=== PATIENT | male | born 1950 | race Caucasian/White ===

== ENCOUNTER 2017-06-01 11:25 | Outpatient (CLI) | payer MEDICARE ==
--- NOTE | 2017-06-01 12:29 | RAD ---
THREE VIEWS LUMBAR SPINE: Date: 06-01-17 History: Patient awakened three months ago low back pain. No history of trauma or surgery. Comparison: None. FINDINGS: There are five non rib bearing lumbar type vertebral bodies. Multilevel degenerative changes are pres ent with narrowing of the intervertebral disc spaces at all levels. There are endplate degenerative c hanges present at the L1-2 and L3-4 levels. No fracture or subluxation is seen. Vascular calcificatio ns are seen in the abdominal aorta and involving the iliac arteries. There is increased density invol ving the sacroiliac joints bilaterally which may be related to bilateral sacroiliac joint osteoarthri tis. Vascular calcification seen in the abdominal aorta. IMPRESSION: 1. Multilevel degenerative changes throughout the lumbar spine as well as involving the bilateral sac roiliac joints. 2. No fracture or subluxation involving the lumbar spine. POS: [facility]
== END 2017-06-01 11:26 | disposition home or self-care (01) ==
LOC: SCSRAD 11:25
PROVIDERS: ATTEND Psychiatry & Neurology Neurology
DX: M47.27 Other spondylosis with radiculopathy, lumbosacral region (principal); Z51.81 Encounter for therapeutic drug level monitoring; Z79.01 Long term (current) use of anticoagulants
CPT/HCPCS: 72100

== ENCOUNTER 2018-07-31 01:00 | Outpatient (CLI) | payer MEDICARE ==
[2018-07-31 12:53] LABS: Hemoglobin 13.6 g/dL (14.0-18.0); Mean Corpuscular HGB CONC 32.2 g/dL (32.0-36.0); Mean Corpuscular Hemoglobin 30.3 pg (27.0-31.0); Mean Corpuscular Volume 94.3 fL (78.0-98.0); Mean Platelet Volume 7.5 fL (7.4-10.4); Platelet Count 269 thou/uL (130-400); RBC Distribution Width 12.4 % (11.5-14.5); Red Blood Cell (RBC) Count 4.49 mill/uL (4.70-6.10); White Blood Cell (WBC) Count 8.2 thou/uL (4.8-10.8)
[2018-07-31 12:58] LABS: Bilirubin Negative (Negative); Blood, Urine Small (Negative); Clarity CLEAR (Clear); Glucose, Urine (Dipstick) Negative (Negative); Leukocyte Negative (Negative); Nitrite Negative (Negative); Protein, Urine (Dipstick) 300 mg/dL (Neg-Trace); Specific Gravity, Urine 1.017 (1.002-1.036); Urobilinogen 0.2 mg/dL (0.2-1.0); pH, Urine 5.5 (5.0-9.0)
[2018-07-31 13:01] LABS: Bacteria/HPF None Seen HPF (None Seen); Hyaline Casts/LPF 4-6 HYALINE CAST LPF (0-3 Hyaline); Pathc Cast-AUWi Flag 0.87 (0-2.49); Squamous Epithelial None Seen HPF (0-3); WBC/HPF 0-3 HPF (0-3)
[2018-07-31 13:16] LABS: Anion Gap 12 mmol/L (10-20); BUN (Urea Nitrogen) 33 mg/dL (8.4-25.7); Calc. Creatinine Clearance 0 mL/min (70-130); Calcium 9.6 mg/dL (7.8-10.44); Carbon Dioxide 29 mmol/L (23-31); Chloride 107 mmol/L (98-107); Estimated GFR-MDRD 44; Glucose 101 mg/dL (80-115); Potassium 4.6 mmol/L (3.5-5.1); Sodium 143 mmol/L (136-145)
== END 2018-07-31 01:01 | disposition home or self-care (01) ==
LOC: LABBT 01:00
PROVIDERS: ATTEND Orthopaedic Surgery
DX: Z01.818 Encounter for other preprocedural examination (principal); M19.011 Primary osteoarthritis, right shoulder
CPT/HCPCS: 80048; 81001; 85027; 93005; 93010

== ENCOUNTER 2018-07-31 10:30 | Inpatient (IN) | payer MEDICARE ==
[2018-08-02] MEDS ORDERED: Sodium Chloride 0.9% 100 ML ONE (06:12)
[2018-08-02] MEDS ORDERED: Tranexamic Acid 1,000 MG/10 ML VIAL ONE (06:12)
[2018-08-02] MEDS ORDERED: Fentanyl 100 MCG/2 ML VIAL ONE ×2 (06:36→06:59)
[2018-08-02] MEDS ORDERED: Midazolam HCl 2 mg/2 ml Vial ONE (06:36)
[2018-08-02] MEDS ORDERED: Zolpidem Tartrate 5 MG TAB PO PRN ×2 (07:32→11:24)
[2018-08-02] MEDS ORDERED: Ondansetron PF 4 MG/2 ML Vial IVP PRN ×2 (07:32→11:24)
[2018-08-02] MEDS ORDERED: traMADol HCl 50 MG TAB PO PRN ×3 (07:32→11:24)
[2018-08-02] MEDS ORDERED: Ropivacaine 0.2% 550 ML 550 ML NERVE BLCK SCH (07:32)
[2018-08-02] MEDS ORDERED: Promethazine HCl 25 MG/ML VIAL IM PRN (07:32)
[2018-08-02] MEDS ORDERED: HYDROcodone/Acetaminophen 10/325 mg Tablet PO PRN ×3 (07:32→11:24)
[2018-08-02] MEDS ORDERED: Albuterol Sulfate 1.25 MG/3 ML NEB ONE (09:54)
--- NOTE | 2018-08-02 11:16 | OP ---
DATE OF PROCEDURE: 08/02/2018 PREOPERATIVE DIAGNOSES: 1. Right shoulder osteoarthritis. 2. Biceps tendinopathy. PROCEDURES PERFORMED: 1. Right total shoulder. 2. Open biceps tenodesis. COMPOSITION WEATHERBOARD INSTALLER: Pauline Arguello. ANESTHESIOLOGIST: Dr. Cornejo. ANESTHESIA: The patient received a general intubation with interscalene block. ESTIMATED BLOOD LOSS: 200 mL. TOURNIQUET TIME: None. IMPLANTS: A Tornier Glenoid L40 CortiLoc, a 6B flex stem with a 50 x 16 mm high offset. ANTIBIOTICS: The patient received Ancef 2 g, vancomycin 2 g, and TXA 1 g. COMPLICATIONS: None. HISTORY OF PRESENT ILLNESS: Mr. Staley is a pleasant 68-year-old male with history of chronic kidney disease, diabetes, obesity, varicosities, kidney status, and high blood pressures, who presents for right shoulder pain. The patient has history of previous left total shoulder arthroplasty for shoulder osteoarthritis, which did well. We discussed with the patient risks and benefits of right total shoulder arthroplasty to include pain, scar, bleeding, infection, damage to vital structures, decreased range of motion and strength, nonunion, malunion, need for further surgery, continued pain, failure of implants, need for revision, loss of life or limb. The patient understood these risks and benefits and elected to proceed. DESCRIPTION OF PROCEDURE: Time-out was performed, designating the patient's right upper extremity as the operative site, based on site, consents, marked. After time-out, the patient's right upper extremity was prepped and draped in a sterile fashion. Deltopectoral incision was made, came down, found the vein,cephalic between the deltoid and pec, came down, found the conjoined, took off the synovium, came down, and exposing the conjoined and the deltoid. I made an incision, found the biceps, came down in the bicipital groove, took down the subscapularis and capsule inferiorly, everting and taking all the osteophytes off to expose the head, but has a Crego retractor over the cuff protecting our cut the head cut medially , cut based off the articular surface, removed the head, sized it, and after removing all the osteophytes, we removed and started stemming, broaching 30 degrees in line with the arm, cutting our keel, and then broaching up to a size 4, placed our head cap and then removing the glenoid with a 360-degree release of the patient's labrum as well as biceps as the biceps still has some loose bodies within the pouch. After completion of releasing it, we then sized to a 40 large. We drilled our center hole and then we reamed. We drilled our large center hole and placed our CortiLoc drill holes. We had a good stable fixation with our glenoid, not exceeding, slightly medialized about a millimeter and half, I liked the overall position as just slightly inferior. Overall position was good and good contour with the glenoid. We then removed, washed. We cemented our 3 pegs, placed our implant into position and packed into position and moved back to our humerus. We went up to a size 6B flex stem from a 5. We trialed 1st the 50 x 18, which had a larger thickness metal head, went to the high offset with a 16 mm head, felt like the patient had 50% translation, internally rotated, coming up this arm over head, get a good overall mechanics. We then removed the stem, placed 4 sutures of #5 Ethibond through the bone just on the lateral aspect of the lesser tuberosity and one in and out, the stem was passed through on the lateral aspect just near the distal insertion of the cuff. We then sewed the subscapularis through whipstitches through the bone tunnels, sewing from inferior to superior with the arm in a neutral, slightly external position. We cut as we sewed from inferior to superior. We then tenodesed the biceps with #1 Ethibond, closing it in the beginning of the interval with 2 [id number] stitches and we closed the interval with [id number] stitches between the cuff and subscap. We then passed 2 more #1 Vicryl through the biceps tendon. This performed our completion of biceps tenodesis, and I used as an [id number] stitch the original suture that I used to hold the subscap to pass around to my sutures posteriorly to help with completion of my repair. We then cut the sutures and washed and we washed through our layers. We then closed the deltopectoral interval with a running #1 Vicryl of the vein, which was maintained. We then closed the subcu with 2-0 and closed the skin with jose martin. The patient will be admitted to the hospital. We will see how he does. Pain control and 24-hour antibiotics with 2nd dose in the morning and he will begin pendulum passive range of motion exercise and no external rotation greater than 30 degrees. Job ID: [id number] MTDD
[2018-08-02] MEDS ORDERED: Famotidine 20 MG TAB PO SCH ×2 (11:24→12:30)
[2018-08-02] MEDS ORDERED: diphenhydrAMINE 50 MG CAP PO PRN (11:24)
[2018-08-02] MEDS ORDERED: Ondansetron ODT 4 MG TAB PO PRN (11:24)
[2018-08-02] MEDS ORDERED: CEFAZOLIN/Water 2 GM/20 ML SYRINGE SLOW IVP SCH (11:24)
[2018-08-02] MEDS ORDERED: Bisacodyl 10 MG SUPP PR PRN (11:24)
[2018-08-02] MEDS ORDERED: Milk Of Magnesia 30 ML UDCUP PO PRN (11:24)
[2018-08-02] MEDS ORDERED: Acetaminophen 325 MG TAB PO PRN (11:24)
[2018-08-02] MEDS ORDERED: Methocarbamol 1 GM/10 ML VIAL SLOW IVP PRN (11:24)
--- NOTE | 2018-08-02 11:32 | RAD ---
TWO VIEWS RIGHT SHOULDER: Date: 08-02-18 History: Post total shoulder replacement. FINDINGS: There are post-surgical changes related to right humeral prosthesis with skin clips overlying the rig ht shoulder. Externally rotated and scapular Y views are provided. No fracture or dislocation is appr eciated. Skin clips overlie the right shoulder. Subcutaneous emphysema is present related to recent p ost-surgical change. There is volume loss present in the right midlung zone at the right lung base. T his was also obtained in a shallow depth of inspiration. IMPRESSION: 1. Post-surgical changes related to right shoulder prosthesis. 2. Atelectasis right midlung zone and right lung base. POS: [facility]
[2018-08-02 12:29] VITALS: BMI 38.6
[2018-08-02] MEDS ORDERED: Bupivacaine HCl 0.5%/Epinephrine 1:200,000/PF 30 ml Vial ONE (13:11)
[2018-08-02] MEDS ORDERED: Ropivacaine 0.2% HCl/PF (40 MG/20 ML VIAL) ONE (13:11)
[2018-08-02] MEDS ORDERED: Lidocaine 1% PF 5 ML VIAL ONE (13:19)
[2018-08-02] MEDS ORDERED: PROPOFOL 200 MG/20 ML VIAL ONE (13:19)
[2018-08-02] MEDS ORDERED: Glycopyrrolate 0.2 MG/ML 5 ML SYRINGE ONE (13:19)
[2018-08-02] MEDS ORDERED: Rocuronium Bromide 10 MG/ML (10ML VIAL) ONE (13:19)
[2018-08-02] MEDS ORDERED: ePHEDrine 50 MG/ML VIAL ONE (13:19)
[2018-08-02] MEDS ORDERED: PHENYLEPHRINE-NS 100 MCG/ML 10 ML SYRINGE ONE (13:19)
[2018-08-02] MEDS ORDERED: Ondansetron PF 4 MG/2 ML Vial ONE (13:19)
[2018-08-02] MEDS ORDERED: Dexamethasone 20 MG/5 ML VIAL ONE (13:19)
[2018-08-02] MEDS ORDERED: CEFAZOLIN 2 GM in Premix Bag 1 BAG IVPB SCH (14:00)
[2018-08-02] MEDS: CEFAZOLIN 2 GM in Premix Bag 1 BAG IVPB SCH ×2 (15:09→23:37)
[2018-08-02] MEDS: Gabapentin 300 MG CAP PO SCH ×2 (15:13→20:13)
[2018-08-02] MEDS: traMADol HCl 50 MG TAB PO PRN (18:35)
[2018-08-02] MEDS: Famotidine 20 MG TAB PO SCH (20:13)
[2018-08-02] MEDS: Atorvastatin Calcium 40 MG TAB PO SCH (20:14)
[2018-08-03] MEDS: traMADol HCl 50 MG TAB PO PRN (03:22)
[2018-08-03] MEDS ORDERED: Dextrose 5% in Water 1,000 ML IV PRN (05:55)
[2018-08-03] MEDS ORDERED: Dextrose 50% Abboject 50 ML SYRINGE SLOW IVP PRN (05:55)
--- NOTE | 2018-08-03 05:56 | PDOC.PN ---
- Subjective Encounter Start Date: 08/02/18 Encounter Start Time: 15:00 Subjective: pt up in bed no complains of pain - Objective Vital Signs & Weight: Vital Signs (12 hours) Temp Pulse Resp BP Pulse Ox 08/03/18 04:25 97.9 F 64 18 128/70 93 L 08/02/18 23:40 97.6 F 69 20 132/71 97 08/02/18 20:22 98.7 F 72 18 131/75 95 Weight Weight 285 lb I&O: 08/01/18 08/02/18 08/03/18 06:59 06:59 06:59 Intake Total 1900 Balance 1900 Phys Exam - Physical Examination Neck: no nodes, no JVD, supple, full ROM Respiratory: no wheezing, no rales, no rhonchi, wheezing present, clear to auscultation bilateral Cardiovascular: RRR, no significant murmur, no rub, gallop, irregular Gastrointestinal: soft, non-tender, no distention, positive bowel sounds right shoulder in jeff wrap Neurological: non-focal, normal sensation, moves all 4 limbs Dx/Plan (1) HTN (hypertension) Code(s): I10 - ESSENTIAL (PRIMARY) HYPERTENSION Status: Acute (2) Diabetes type 2, controlled Code(s): E11.9 - TYPE 2 DIABETES MELLITUS WITHOUT COMPLICATIONS Status: Acute (3) CKD (chronic kidney disease) Code(s): N18.9 - CHRONIC KIDNEY DISEASE, UNSPECIFIED Status: Acute - Plan will conitnue his bp meds with holding parameters -: will check accu checks on him -: bmp in am -: pt is a former smoker, no alcohol use. no use of cpap * . Review of Systems - Review of Systems Cardiovascular: negative: chest pain, palpitations, orthopnea, paroxysmal nocturnal dyspnea, edema, light headedness, other Gastrointestinal: negative: Nausea, Vomiting, Abdominal Pain, Diarrhea, Constipation, Melena, Hematochezia, Other Musculoskeletal: negative: Neck Pain, Shoulder Pain, Arm Pain, Back Pain, Hand Pain, Leg Pain, Foot Pain, Other Skin: negative: Rash, Lesions, Wilman, Bruising, Other - Medications/Allergies Allergies/Adverse Reactions: Allergies Allergy/AdvReac Type Severity Reaction Status Date / Time No Known Allergies Allergy Verified 07/31/18 10:45 Medications: Current Medications Acetaminophen (Tylenol) 650 mg PO Q4H PRN PRN Reason: WALKER/T > 101.5F/Mild Pain (1-3) Hydrocodone Bitart/Acetaminophen ([place] 10/325) 1 tab PO Q4H PRN PRN Reason: Pain (1-3) Hydrocodone Bitart/Acetaminophen ([place] 10/325) 2 tab PO Q4H PRN PRN Reason: PAIN (4-6) Amlodipine Besylate (Norvasc) 10 mg PO DAILY [facility] Atenolol (Tenormin) 25 mg PO DAILY [facility] Atorvastatin Calcium (Lipitor) 40 mg PO HS [facility] Last Admin: 08/02/18 20:14 Dose: 40 mg Bisacodyl (Dulcolax) 10 mg [place] Q6H PRN PRN Reason: Constipation Dextrose/Water (Dextrose 50%) 25 gm SLOW IVP PRN PRN PRN Reason: Hypoglycemia Diphenhydramine HCl (Benadryl) 50 mg PO Q4H PRN PRN Reason: Itching Famotidine (Pepcid) 20 mg PO BID [facility] Last Admin: 08/02/18 20:13 Dose: 20 mg Fluoxetine HCl (Prozac) 20 mg PO DAILY [facility] Gabapentin (Neurontin) 300 mg PO TID [facility] Last Admin: 08/02/18 20:13 Dose: 300 mg Glucagon (Glucagon) 1 mg IM PRN PRN PRN Reason: Hypoglycemia Vancomycin HCl 2 gm/ Sodium (Chloride) 500 mls @ 250 mls/hr IVPB ONCALL-OR [facility] Ropivacaine (Ropivacaine 0.2% 550 Ml) 550 mls @ 6 mls/hr NERVE BLCK INF [facility] Dextrose/Water (D5w) 1,000 mls @ 0 mls/hr IV .Q0M PRN PRN Reason: Hypoglycemia Insulin Human Lispro (Humalog) 0 units SC .MILD SLIDING SCALE PRN PRN Reason: Mild Correctional Scale Magnesium Hydroxide (Milk Of Magnesium) 30 ml PO DAILYPRN PRN PRN Reason: Constipation Methocarbamol (Robaxin) 0.75 gm SLOW IVP Q6H PRN PRN Reason: Muscle Spasm Ondansetron HCl (Zofran) 4 mg IVP Q6H PRN PRN Reason: Nausea/Vomiting Ondansetron HCl (Zofran Odt) 4 mg PO Q6H PRN PRN Reason: Nausea/Vomiting Pioglitazone HCl (Actos) 30 mg PO DAILY [facility] Promethazine HCl (Phenergan) 12.5 mg IM Q4H PRN PRN Reason: Nausea Sodium Chloride (Flush - Normal Saline) 10 ml IVF PRN PRN PRN Reason: Saline Flush Tramadol HCl (Ultram) 50 mg PO Q6H PRN PRN Reason: Mild Pain (1-3) Tramadol HCl (Ultram) 100 mg PO Q6H PRN PRN Reason: Moderate Pain 4-6 Last Admin: 08/03/18 03:22 Dose: 100 mg Zolpidem Tartrate (Ambien) 5 mg PO HSPRN PRN PRN Reason: Insomnia
[2018-08-03 07:08] LABS: Anion Gap 13 mmol/L (10-20); BUN (Urea Nitrogen) 47 mg/dL (8.4-25.7); Calc. Creatinine Clearance 70 mL/min (70-130); Carbon Dioxide 25 mmol/L (23-31); Chloride 104 mmol/L (98-107); Estimated GFR-MDRD 35; Glucose 197 mg/dL (80-115); Potassium 4.8 mmol/L (3.5-5.1); Sodium 137 mmol/L (136-145)
[2018-08-03] MEDS: Gabapentin 300 MG CAP PO SCH ×3 (09:25→21:25)
[2018-08-03] MEDS: Atenolol 25 MG TAB PO SCH (09:25)
[2018-08-03] MEDS: Pioglitazone HCl 15 MG TAB PO SCH (09:25)
[2018-08-03] MEDS: FLUoxetine HCl 20 MG CAP PO SCH (09:26)
[2018-08-03] MEDS: Amlodipine 10 MG TAB PO SCH (09:26)
[2018-08-03] MEDS: Famotidine 20 MG TAB PO SCH ×2 (09:26→21:25)
[2018-08-03 13:30] LABS: Vancomycin, Random 24.3 ug/mL (See Comment)
--- NOTE | 2018-08-03 15:36 | PQF ---
DATE: 08-03-18 ATTN: DR. ROBIN TIERNEY Please exercise your independent, professional judgment in responding to the clarification form. Clinical indicators are provided on the bottom of this form for your review Please check appropriate box(s): [ x ] Acute Renal Failure (ARF) / Acute Kidney Injury (SKINNY) [ ] Acute on Chronic Renal Failure please specify Stage of CKD (see below) [ ] CKD without ARF/SKINNY please specify Stage of CKD [ ] Other diagnosis [ ] Unable to determine In addition, please specify: Present on Admission (POA): [ ] Yes [ x ] No [ ] Unable to determine PLEASE SEE MY PROGRESS NOTE National Kidney Foundation Guidelines for CKD Staging Stage I Kidney damage with normal or increased GFR GFR > 90 Stage II Kidney damage with mildly decreased GFR GFR 60-89 Stage III Kidney damage with moderately decreased GFR GFR 30-59 Stage IV Kidney damage with severely decreased GFR GFR 16-29 Stage V Kidney failure GFR<15 ESRD End Stage Renal Disease On dialysis Acute Renal Failure/Acute Kidney Failure defined as: Increases in SCr by (>) 0.3 mg/dl within 48 hours OR- Increases in SCr by (>) 1.5 times baseline, known or presumed to have occurred within the prior 7 days OR- Urine volume < 0.5 ml/kg/hour for 6 hours (KDIGO supplement 2012 for RIFLE/KARL criteria) For continuity of documentation, please document condition throughout progress notes and discharge summary. Thank You. CLINICAL INDICATORS - SIGNS / SYMPTOMS / LABS GFR: 08-03-18: 35 CREATININE: 08-03-18: 1.91 BUN: 08-03-18: [address] TIERNEY 08-02-18: HTN, DM 2, CKD RISK FACTORS: CONSULT NOTE DR. TIERNEY 08-02-18: HTN, DM 2, CKD TREATMENTS: CONSULT NOTE DR. TIERNEY 08-02-18: WILL CONTINUE HIS BP MEDS WITH HOLDING PARAMETERS, BMP IN AM (This form is maintained as a part of the permanent medical record) 2014 [employer] All Rights Reserved ROX [email or web address] Office: [phone] [facility]PITALArnold[facility]
[2018-08-03] MEDS: HumaLOG 300 UNITS/3 ML VIAL SC PRN ×2 (17:26→22:44)
--- NOTE | 2018-08-03 20:20 | PDOC.PN ---
- Subjective Encounter Start Date: 08/03/18 Encounter Start Time: 10:00 Subjective: pt up in bed no complains - Objective Vital Signs & Weight: Vital Signs (12 hours) Temp Pulse Resp BP BP Pulse Ox 08/03/18 15:18 98.6 F 70 20 123/74 91 L 08/03/18 11:58 99.0 F 68 20 124/69 91 L 08/03/18 09:26 69 121/66 08/03/18 09:25 69 121/71 08/03/18 08:59 97.4 F L 69 20 121/71 94 L Weight Weight 285 lb I&O: 08/02/18 08/03/18 08/04/18 06:59 06:59 06:59 Intake Total 3160 1260 Output Total 500 Balance 3160 760 Result Diagrams: 08/03/18 06:41 Phys Exam - Physical Examination Respiratory: no wheezing, no rales, no rhonchi, wheezing present, clear to auscultation bilateral Cardiovascular: RRR, no significant murmur, no rub, gallop, irregular Gastrointestinal: soft, non-tender, no distention, positive bowel sounds Musculoskeletal: no edema, pulses present, edema present Dx/Plan (1) HTN (hypertension) Code(s): I10 - ESSENTIAL (PRIMARY) HYPERTENSION Status: Acute (2) Diabetes type 2, controlled Code(s): E11.9 - TYPE 2 DIABETES MELLITUS WITHOUT COMPLICATIONS Status: Acute (3) CKD (chronic kidney disease) Code(s): N18.9 - CHRONIC KIDNEY DISEASE, UNSPECIFIED Status: Acute (4) Acute kidney injury superimposed on CKD Code(s): N17.9 - ACUTE KIDNEY FAILURE, UNSPECIFIED; N18.9 - CHRONIC KIDNEY DISEASE, UNSPECIFIED Status: Acute - Plan will check vanco random level -: pt not on any nephrotoxins, will avoid nephrotoxins -: pt encouraged to drink more water -: will check bmp in am. continue to hold hctz for now. * . Review of Systems - Review of Systems Respiratory: negative: Cough, Dry, Shortness of Breath, Hemoptysis, SOB with Excertion, Pleuritic Pain, Sputum, Wheezing Cardiovascular: negative: chest pain, palpitations, orthopnea, paroxysmal nocturnal dyspnea, edema, light headedness, other Gastrointestinal: negative: Nausea, Vomiting, Abdominal Pain, Diarrhea, Constipation, Melena, Hematochezia, Other - Medications/Allergies Allergies/Adverse Reactions: Allergies Allergy/AdvReac Type Severity Reaction Status Date / Time No Known Allergies Allergy Verified 07/31/18 10:45 Medications: Current Medications Acetaminophen (Tylenol) 650 mg PO Q4H PRN PRN Reason: WALKER/T > 101.5F/Mild Pain (1-3) Hydrocodone Bitart/Acetaminophen ([place] 10/325) 1 tab PO Q4H PRN PRN Reason: Pain (1-3) Hydrocodone Bitart/Acetaminophen ([place] 10/325) 2 tab PO Q4H PRN PRN Reason: PAIN (4-6) Amlodipine Besylate (Norvasc) 10 mg PO DAILY [facility] Last Admin: 08/03/18 09:26 Dose: 10 mg Atenolol (Tenormin) 25 mg PO DAILY [facility] Last Admin: 08/03/18 09:25 Dose: 25 mg Atorvastatin Calcium (Lipitor) 40 mg PO HS [facility] Last Admin: 08/02/18 20:14 Dose: 40 mg Bisacodyl (Dulcolax) 10 mg [place] Q6H PRN PRN Reason: Constipation Dextrose/Water (Dextrose 50%) 25 gm SLOW IVP PRN PRN PRN Reason: Hypoglycemia Diphenhydramine HCl (Benadryl) 50 mg PO Q4H PRN PRN Reason: Itching Famotidine (Pepcid) 20 mg PO BID [facility] Last Admin: 08/03/18 09:26 Dose: 20 mg Fluoxetine HCl (Prozac) 20 mg PO DAILY [facility] Last Admin: 08/03/18 09:26 Dose: 20 mg Gabapentin (Neurontin) 300 mg PO TID [facility] Last Admin: 08/03/18 14:45 Dose: 300 mg Glucagon (Glucagon) 1 mg IM PRN PRN PRN Reason: Hypoglycemia Vancomycin HCl 2 gm/ Sodium (Chloride) 500 mls @ 250 mls/hr IVPB ONCALL-OR [facility] Ropivacaine (Ropivacaine 0.2% 550 Ml) 550 mls @ 6 mls/hr NERVE BLCK INF [facility] Dextrose/Water (D5w) 1,000 mls @ 0 mls/hr IV .Q0M PRN PRN Reason: Hypoglycemia Insulin Human Lispro (Humalog) 0 units [place] .MILD SLIDING SCALE PRN PRN Reason: Mild Correctional Scale Last Admin: 08/03/18 17:26 Dose: 3 unit Magnesium Hydroxide (Milk Of Magnesium) 30 ml PO DAILYPRN PRN PRN Reason: Constipation Methocarbamol (Robaxin) 0.75 gm SLOW IVP Q6H PRN PRN Reason: Muscle Spasm Ondansetron HCl (Zofran) 4 mg IVP Q6H PRN PRN Reason: Nausea/Vomiting Last Admin: 08/03/18 14:00 Dose: 4 mg Ondansetron HCl (Zofran Odt) 4 mg PO Q6H PRN PRN Reason: Nausea/Vomiting Pioglitazone HCl (Actos) 30 mg PO DAILY [facility] Last Admin: 08/03/18 09:25 Dose: 30 mg Promethazine HCl (Phenergan) 12.5 mg IM Q4H PRN PRN Reason: Nausea Sodium Chloride (Flush - Normal Saline) 10 ml IVF PRN PRN PRN Reason: Saline Flush Last Admin: 08/03/18 09:26 Dose: 10 ml Tramadol HCl (Ultram) 50 mg PO Q6H PRN PRN Reason: Mild Pain (1-3) Tramadol HCl (Ultram) 100 mg PO Q6H PRN PRN Reason: Moderate Pain 4-6 Last Admin: 08/03/18 03:22 Dose: 100 mg Zolpidem Tartrate (Ambien) 5 mg PO HSPRN PRN PRN Reason: Insomnia
[2018-08-03] MEDS: Atorvastatin Calcium 40 MG TAB PO SCH (21:25)
[2018-08-04 06:08] LABS: Anion Gap 12 mmol/L (10-20); BUN (Urea Nitrogen) 57 mg/dL (8.4-25.7); Calc. Creatinine Clearance 60 mL/min (70-130); Calcium 8.7 mg/dL (7.8-10.44); Carbon Dioxide 24 mmol/L (23-31); Chloride 103 mmol/L (98-107); Estimated GFR-MDRD 30; Glucose 155 mg/dL (80-115); Potassium 4.3 mmol/L (3.5-5.1); Sodium 135 mmol/L (136-145)
[2018-08-04] MEDS: Pioglitazone HCl 15 MG TAB PO SCH (08:49)
[2018-08-04] MEDS: Atenolol 25 MG TAB PO SCH (08:49)
[2018-08-04] MEDS: Amlodipine 10 MG TAB PO SCH (08:49)
[2018-08-04] MEDS: Famotidine 20 MG TAB PO SCH ×2 (08:49→20:38)
[2018-08-04] MEDS: Gabapentin 300 MG CAP PO SCH ×3 (08:49→20:38)
[2018-08-04] MEDS: FLUoxetine HCl 20 MG CAP PO SCH (08:49)
[2018-08-04] MEDS ORDERED: Sodium Chloride 0.9% 500 ML IV SCH (10:15)
[2018-08-04] MEDS ORDERED: Bacteriostatic Water 30 ML VIAL FS PRN (13:21)
[2018-08-04] MEDS ORDERED: Insulin Glargine 10 UNITS in Pre-Filled Syringe 1 EACH SC SCH (13:30)
[2018-08-04] MEDS ORDERED: methylPREDNISolone Sod Succ 40 MG VIAL IVP SCH (13:30)
--- NOTE | 2018-08-04 15:23 | RAD ---
PORTABLE AP CHEST: Date: 08/04/18 HISTORY: Shortness of breath. COMPARISON: 03/29/15. FINDINGS: There has been interval development of elevation of the right hemidiaphragm compared to the prior aleena dy with volume loss at the right lung base. Left lung is clear. Right cardiac border is partially obs cured. Bilateral total shoulder prostheses are present with skin clips overlying the right shoulder. Postsurgical changes right shoulder have developed in the interim. Vascular calcifications seen in th oracic aorta. IMPRESSION: 1. Interval development of elevation of the right hemidiaphragm with volume loss at the right lung b ase. 2. Recent postsurgical changes related to right shoulder prosthesis. POS: [facility]
[2018-08-04 16:15] LABS: Actual Bicarbonate (HCO3a) 25.1 mEq/L (22-28); Base Excess (BEa) -0.6 mEq/L (-2.0 to +3.0); CO2 Tension 45.7 mmHg (35.0-45.0); Calcium, Ionized 1.17 mmol/L (1.12-1.30); Carboxyhemoglobin (COHb) 1.3 gm% (0.0-3.0); Hemoglobin (Hb) 11.2 g/dL (14.0-18.0); Potassium - ABG Lab 4.23 mmol/L (3.70-5.30); pH, Arterial 7.36 (7.35-7.45)
[2018-08-04 16:29] LABS: Puncture Site LRA
[2018-08-04 16:31] LABS: ALV-art Gradient 68.255 (0-20)
--- NOTE | 2018-08-04 16:36 | ULT ---
RENAL SONOGRAM: 08/04/18 HISTORY: Acute renal insufficiency. COMPARISON: 07/03/17. FINDINGS: The right kidney measures 11.3 cm x 6.2 cm. There is a small 1.6 cm exophytic hypoechoic structure se en involving the superior pole right kidney which is difficult to characterize as a simple cyst based on this exam and due to small size. No additional mass or cystic lesion is seen involving either kid jeanette. The kidneys otherwise have a normal sonographic appearance bilaterally without evidence of hydro nephrosis or renal calculus. The right kidney measures 11.3 cm x 6.2 cm with the left kidney measuring 11.4 cm x 5.6 cm. IMPRESSION: 1. Exophytic hypoechoic cystic structure measuring 1.6 cm at the superior pole right kidney whic h is difficult to accurately characterize as a simple cyst. There is posterior acoustic enhancement, and the echogenicity of this lesion may be attributable to artifact. However, short interval followu p is recommended in 4 to 6 months. 2. No evidence of hydronephrosis. POS: [facility]
[2018-08-04] MEDS: HYDROcodone/Acetaminophen 10/325 mg Tablet PO PRN (16:52)
[2018-08-04 17:11] LABS: Vancomycin, Random 13.6 ug/mL (See Comment)
--- NOTE | 2018-08-04 17:16 | CON ---
DATE OF CONSULTATION: 08/04/2018 REASON FOR CONSULTATION: Acute kidney injury. HISTORY OF PRESENT ILLNESS: The patient is a 68-year-old male with past medical history significant for CKD stage 3 with baseline creatinine ranging from 1.5 to 1.7, type 2 diabetes, coronary artery disease, as well as osteoarthritis, who was admitted by Orthopedic Surgery Service after right total showed an open biceps tenodesis. Postoperatively, the patient was noted to have acute elevation in creatinine, which continues to trend up, hence Nephrology consult for further evaluation. There was no obvious hypotensive episode during surgery. However, the patient was started on vancomycin and the available trough, which was yesterday afternoon, August 03, 2018, was 24.3. There was no history of contrast use or any other nephrotoxic agent use. The patient denied dysuria, hematuria, or difficulty passing urine. Postoperatively, BP has been stable, ranging from 107 to 132. The patient is a known patient of Dr. Albrecht, who was just seen in the office about a week ago. Postoperatively, the patient also was noted to have hypoxia, hence was started on oxygen supplementation. Of note, creatinine was 1.58 on July 31. On August 03, that is a day post surgery, creatinine was 1.91 and earlier today on August 04, creatinine is 2.2. PAST MEDICAL HISTORY: 1. Type 2 diabetes. 2. CKD stage 3. 3. Hypertension. 4. Obesity. 5. Coronary artery disease. PHYSICAL EXAMINATION: VITAL SIGNS: BP is 107/64, temperature is 98.9, pulse is 64, respiratory rate is 12, SpO2 is 91% on room air. GENERAL: Morbidly obese male, in no obvious distress. Afebrile, anicteric, acyanotic. HEENT: Normocephalic, atraumatic. Pupils are equal and reacting to light. CARDIOVASCULAR: Regular rhythm and rate with normal heart sounds 1 and 2. RESPIRATORY: Bronchial breath sounds heard at the right base posteriorly. Air entry is fair in all the areas. Some transmitted sounds is heard with no obvious crackle or rhonchi. Work of breathing is not increased. GI: Abdomen is obese, soft, nontender, nondistended with normal bowel sounds. EXTREMITIES: Right anterior showed surgical wound noted. Mild to moderate bilateral leg edema with some varicosities noted. NEUROLOGIC: Conscious, alert, and oriented x3 with appropriate mental status. The patient moves all extremities. DIAGNOSTIC DATA: BMP showed sodium 135, potassium 4.3, chloride 103, CO2 of 24, BUN 57, glucose 155, calcium 8.7, creatinine is 2.2, which has gone up from 1.91 yesterday and 1.58 two days prior. Random vancomycin level obtained on 08/03/2018 was 24.3. Ultrasound of the kidneys has been ordered and performed and report is pending at this time. ASSESSMENT AND PLAN: 1. Acute kidney injury on chronic kidney disease, 3: This most likely due to postoperative changes related to anesthesia and intraoperative hemodynamic changes. Elevated random vancomycin level is concerning for vancomycin-induced nephrotoxicity. The patient is not exposed to any of the nephrotoxic agent. The patient is at increased risk for acute kidney injury given his chronic kidney disease history. We will get urinalysis as well as urine electrolytes to calculate FENa and FEUrea. We will also review renal ultrasound report when available. We will prefer to discontinue vancomycin at this time since it is the only nephrotoxic agent the patient is exposed to. We will monitor renal function. We will continue gentle hydration at this time until we re-evaluate with electrolytes and urinalysis. 2. Acute respiratory failure with hypoxia: Etiology is unclear. Air entry is decreased on the right base with bronchial breath sounds and chest x-ray showed some volume loss. Pulmonary embolism is a concern, but we cannot afford to get contrast at this time given acute kidney injury. We defer further evaluation to the primary team. 3. Status post right total shoulder treatment as per Orthopedic. Job ID: [id number]
[2018-08-04] MEDS: Atorvastatin Calcium 40 MG TAB PO SCH (20:38)
--- NOTE | 2018-08-04 21:12 | CT ---
CT CHEST WITHOUT CONTRAST 08/04/18 HISTORY: Shortness of breath, recent shoulder surgery. FINDINGS: Absence of oral and IV contrast reduces the sensitivity of exam particularly for evaluation of the me diastinal, hilar and vascular structures. No pleural or pericardial effusions are seen. there is elevation of the right hemidiaphragm. There is patchy consolidation with atelectatic change at the left lung base. Mild infiltrate versus atelectat ic changes also seen in the lingula. No pneumothoraces are seen. No lung masses or pulmonary nodules are identified. There are degenerative changes in the spine. Nonobstructing right renal calculi are p resent in the upper abdominal tomograms. IMPRESSION: Patchy consolidation versus atelectatic changes in the lower lungs. Possibility of infection cannot b e excluded. POS: [facility]
[2018-08-04] MEDS: HumaLOG 300 UNITS/3 ML VIAL SC PRN (21:16)
[2018-08-05 05:56] LABS: Bilirubin Negative (Negative); Blood, Urine Negative (Negative); Clarity CLEAR (Clear); Glucose, Urine (Dipstick) Negative (Negative); Leukocyte Negative (Negative); Nitrite Negative (Negative); Protein, Urine (Dipstick) 100 mg/dL (Neg-Trace); Specific Gravity, Urine 1.017 (1.002-1.036); Urobilinogen 0.2 mg/dL (0.2-1.0); pH, Urine 5.5 (5.0-9.0)
[2018-08-05 05:58] LABS: Bacteria/HPF None Seen HPF (None Seen); Hyaline Casts/LPF 4-6 HYALINE CAST LPF (0-3 Hyaline); Pathc Cast-AUWi Flag 0.72 (0-2.49); Squamous Epithelial None Seen HPF (0-3); WBC/HPF 0-3 HPF (0-3)
--- NOTE | 2018-08-05 06:06 | PDOC.PN ---
- Subjective Encounter Start Date: 08/04/18 Encounter Start Time: 10:15 - Objective Vital Signs & Weight: Vital Signs (12 hours) Temp Pulse Resp BP Pulse Ox 08/05/18 04:00 97.7 F 63 20 114/68 100 08/05/18 02:06 72 20 1 L 08/05/18 00:08 97.6 F 70 20 120/68 93 L 08/04/18 20:35 93 L 08/04/18 20:00 97.9 F 61 20 108/61 93 L 08/04/18 18:58 68 18 92 L Weight Weight 285 lb I&O: 08/03/18 08/04/18 08/05/18 06:59 06:59 06:59 Intake Total 3160 1760 2040 Output Total 500 Balance 3160 1260 2040 Result Diagrams: 08/04/18 05:13 Additional Labs: Accuchecks 08/04/18 08/04/18 08/04/18 21:11 17:26 14:48 POC Glucose 269 H 196 H 199 H Phys Exam - Physical Examination Neck: no nodes, no JVD, supple, full ROM decrease breath sound to bases Cardiovascular: RRR, no significant murmur, no rub, gallop, irregular Gastrointestinal: soft, non-tender, no distention, positive bowel sounds Dx/Plan (1) HTN (hypertension) Code(s): I10 - ESSENTIAL (PRIMARY) HYPERTENSION Status: Acute (2) Diabetes type 2, controlled Code(s): E11.9 - TYPE 2 DIABETES MELLITUS WITHOUT COMPLICATIONS Status: Acute (3) CKD (chronic kidney disease) Code(s): N18.9 - CHRONIC KIDNEY DISEASE, UNSPECIFIED Status: Acute (4) Acute kidney injury superimposed on CKD Code(s): N17.9 - ACUTE KIDNEY FAILURE, UNSPECIFIED; N18.9 - CHRONIC KIDNEY DISEASE, UNSPECIFIED Status: Acute (5) Hypoxia Code(s): R09.02 - HYPOXEMIA Status: Acute - Plan pt has been on oxygen post surgery and has been unable to be -: weaned off. upon talking to him and daughter pt has been sob for a long -: time. He states that at home in the past when he checks his oxygen it is -: 75-80% RA. pt is downplaying his syptoms and i believe he is not telling -: his providers his symptoms. He also is a smoker one pack and quit 5-6month * I have started him on neb/steroids. cxr hypoventilated lungs. PE is a possibility but i believe his symptoms have been going on for a long time. His sat going in OR was 92%. He is able to do his IS well. CTA is not an option given his renal function, v/q will be suboptimal due to his hypoinflated lungs. His abg was reviewed and stable. He also most likely has sleep apnea. spoken with renal and will continue to monitor. pt also was given 500ml of ns for his kidneys. I have updated his daughter and have asked her to go with him to his appointments. hypoxia possible multifactoral: copd exab/undx odalys/atelectasis. will check labs today and i have added insulin to anticipate elevation in bs due to steroids. Review of Systems - Review of Systems Cardiovascular: negative: chest pain, palpitations, orthopnea, paroxysmal nocturnal dyspnea, edema, light headedness, other Gastrointestinal: negative: Nausea, Vomiting, Abdominal Pain, Diarrhea, Constipation, Melena, Hematochezia, Other Genitourinary: negative: Dysuria, Frequency, Incontinence, Hematuria, Retention , Other - Medications/Allergies Allergies/Adverse Reactions: Allergies Allergy/AdvReac Type Severity Reaction Status Date / Time No Known Allergies Allergy Verified 07/31/18 10:45 Medications: Current Medications Acetaminophen (Tylenol) 650 mg PO Q4H PRN PRN Reason: WALKER/T > 101.5F/Mild Pain (1-3) Hydrocodone Bitart/Acetaminophen (Joaquin 10/325) 1 tab PO Q4H PRN PRN Reason: Pain (1-3) Hydrocodone Bitart/Acetaminophen (Joaquin 10/325) 2 tab PO Q4H PRN PRN Reason: PAIN (4-6) Last Admin: 08/04/18 16:52 Dose: 2 tab Albuterol/Ipratropium (Duoneb) 3 ml NEB [id number] [facility] Last Admin: 08/05/18 02:06 Dose: 3 ml Amlodipine Besylate (Norvasc) 10 mg PO DAILY [facility] Last Admin: 08/04/18 08:49 Dose: 10 mg Atenolol (Tenormin) 25 mg PO DAILY [facility] Last Admin: 08/04/18 08:49 Dose: 25 mg Atorvastatin Calcium (Lipitor) 40 mg PO HS [facility] Last Admin: 08/04/18 20:38 Dose: 40 mg Bisacodyl (Dulcolax) 10 mg [place] Q6H PRN PRN Reason: Constipation Dextrose/Water (Dextrose 50%) 25 gm SLOW IVP PRN PRN PRN Reason: Hypoglycemia Diphenhydramine HCl (Benadryl) 50 mg PO Q4H PRN PRN Reason: Itching Famotidine (Pepcid) 20 mg PO BID [facility] Last Admin: 08/04/18 20:38 Dose: 20 mg Fluoxetine HCl (Prozac) 20 mg PO DAILY [facility] Last Admin: 08/04/18 08:49 Dose: 20 mg Gabapentin (Neurontin) 300 mg PO TID [facility] Last Admin: 08/04/18 20:38 Dose: 300 mg Glucagon (Glucagon) 1 mg IM PRN PRN PRN Reason: Hypoglycemia Dextrose/Water (D5w) 1,000 mls @ 0 mls/hr IV .Q0M PRN PRN Reason: Hypoglycemia Insulin Glargine 10 units/ (Miscellaneous Medication) 0.1 mls @ 0 mls/hr SC QAM [facility] Insulin Human Lispro (Humalog) 0 units SC .MILD SLIDING SCALE PRN PRN Reason: Mild Correctional Scale Last Admin: 08/04/18 21:16 Dose: 4 unit Magnesium Hydroxide (Milk Of Magnesium) 30 ml PO DAILYPRN PRN PRN Reason: Constipation Last Admin: 08/04/18 06:40 Dose: 30 ml Methocarbamol (Robaxin) 0.75 gm SLOW IVP Q6H PRN PRN Reason: Muscle Spasm Methylprednisolone Sodium Succinate (Solu-Medrol) 40 mg IVP DAILY [facility] Ondansetron HCl (Zofran) 4 mg IVP Q6H PRN PRN Reason: Nausea/Vomiting Last Admin: 08/03/18 14:00 Dose: 4 mg Ondansetron HCl (Zofran Odt) 4 mg PO Q6H PRN PRN Reason: Nausea/Vomiting Promethazine HCl (Phenergan) 12.5 mg IM Q4H PRN PRN Reason: Nausea Sodium Chloride (Flush - Normal Saline) 10 ml IVF PRN PRN PRN Reason: Saline Flush Last Admin: 08/03/18 09:26 Dose: 10 ml Sterile Water (Bacteriostatic Water) 1 ml FS PRN PRN PRN Reason: RECONSTITUTION Tramadol HCl (Ultram) 50 mg PO Q6H PRN PRN Reason: Mild Pain (1-3) Tramadol HCl (Ultram) 100 mg PO Q6H PRN PRN Reason: Moderate Pain 4-6 Last Admin: 08/03/18 03:22 Dose: 100 mg Zolpidem Tartrate (Ambien) 5 mg PO HSPRN PRN PRN Reason: Insomnia
[2018-08-05] MEDS: HumaLOG 300 UNITS/3 ML VIAL SC PRN ×2 (06:16→22:05)
[2018-08-05 06:37] LABS: Urine Culture Reflex No No
[2018-08-05 06:51] LABS: Creatinine, Urine 98.88 mg/dL (63-166)
[2018-08-05 07:50] LABS: #Lymphocytes 1.2 thou/uL (1.20-3.40); #Monocytes 0.9 thou/uL (0.11-0.59); #Neutrophils 4.9 thou/uL (1.40-6.50); %Eosinophils 0.7 % (0.0-10.0); %Lymphocytes 17.3 % (21.0-51.0); %Monocytes 12.5 % (0.0-10.0); %Neutrophils 69.5 % (42.0-75.0); Hemoglobin 10.9 g/dL (14.0-18.0); Mean Corpuscular HGB CONC 31.8 g/dL (32.0-36.0); Mean Corpuscular Hemoglobin 30.5 pg (27.0-31.0); Mean Corpuscular Volume 95.8 fL (78.0-98.0); Mean Platelet Volume 7.7 fL (7.4-10.4); Platelet Count 224 thou/uL (130-400); RBC Distribution Width 12.7 % (11.5-14.5); Red Blood Cell (RBC) Count 3.59 mill/uL (4.70-6.10)
[2018-08-05 08:10] LABS: Anion Gap 12 mmol/L (10-20); BUN (Urea Nitrogen) 66 mg/dL (8.4-25.7); Calc. Creatinine Clearance 62 mL/min (70-130); Calcium 9.1 mg/dL (7.8-10.44); Carbon Dioxide 23 mmol/L (23-31); Chloride 105 mmol/L (98-107); Estimated GFR-MDRD 31; Glucose 133 mg/dL (80-115); Sodium 136 mmol/L (136-145)
[2018-08-05] MEDS: Amlodipine 10 MG TAB PO SCH (08:26)
[2018-08-05] MEDS: Famotidine 20 MG TAB PO SCH ×2 (08:29→20:23)
[2018-08-05] MEDS: Gabapentin 300 MG CAP PO SCH ×3 (08:30→20:24)
[2018-08-05] MEDS: Atenolol 25 MG TAB PO SCH (08:31)
[2018-08-05] MEDS: FLUoxetine HCl 20 MG CAP PO SCH (08:31)
[2018-08-05] MEDS: methylPREDNISolone Sod Succ 40 MG VIAL IVP SCH ×2 (08:32→13:08)
[2018-08-05] MEDS: Insulin Glargine 10 UNITS in Pre-Filled Syringe 1 EACH SC SCH (08:32)
[2018-08-05] MEDS: HYDROcodone/Acetaminophen 10/325 mg Tablet PO PRN (08:36)
[2018-08-05] MEDS ORDERED: predniSONE 20 MG TAB PO SCH (13:45)
--- NOTE | 2018-08-05 18:21 | PDOC.PN ---
- Subjective Encounter Start Date: 08/05/18 Encounter Start Time: 09:00 Subjective: pt up in bed no complains - Objective Vital Signs & Weight: Vital Signs (12 hours) Temp Pulse Resp BP BP Pulse Ox 08/05/18 15:46 97.9 F 58 L 16 106/63 93 L 08/05/18 15:25 97.6 F 80 20 116/61 93 L 08/05/18 14:24 63 20 94 L 08/05/18 12:00 97.7 F 57 L 14 103/58 L 93 L 08/05/18 10:44 62 20 94 L 08/05/18 08:31 63 110/67 08/05/18 08:26 63 110/67 08/05/18 08:00 92 L 08/05/18 07:45 97.7 F 63 16 110/67 92 L 08/05/18 07:15 97.7 F 64 18 110/67 92 L 08/05/18 06:34 93 L 08/05/18 06:31 62 20 94 L Weight Weight 285 lb I&O: 08/04/18 08/05/18 08/06/18 06:59 06:59 06:59 Intake Total 1760 2040 1620 Output Total 500 Balance 1260 2040 1620 Result Diagrams: 08/05/18 07:34 08/05/18 07:34 Additional Labs: Accuchecks 08/05/18 08/04/18 06:13 21:11 POC Glucose 162 H 269 H Phys Exam - Physical Examination Neck: no nodes, no JVD, supple, full ROM Respiratory: wheezing present mild Cardiovascular: RRR, no significant murmur, no rub, gallop, irregular Gastrointestinal: soft, non-tender, no distention, positive bowel sounds Musculoskeletal: no edema, pulses present, edema present Dx/Plan (1) HTN (hypertension) Code(s): I10 - ESSENTIAL (PRIMARY) HYPERTENSION Status: Acute (2) Diabetes type 2, controlled Code(s): E11.9 - TYPE 2 DIABETES MELLITUS WITHOUT COMPLICATIONS Status: Acute (3) CKD (chronic kidney disease) Code(s): N18.9 - CHRONIC KIDNEY DISEASE, UNSPECIFIED Status: Acute (4) Acute kidney injury superimposed on CKD Code(s): N17.9 - ACUTE KIDNEY FAILURE, UNSPECIFIED; N18.9 - CHRONIC KIDNEY DISEASE, UNSPECIFIED Status: Acute (5) Hypoxia Code(s): R09.02 - HYPOXEMIA Status: Acute - Plan will continue steroids orally and duonebs for now -: creatinine is improving -: pt will need outpatient pulm consult and sleep study -: he will also need arterial doppler due to complains of -: lower ext pain on ambulation. continue to wean oxygen * . Review of Systems - Review of Systems Respiratory: negative: Cough, Dry, Shortness of Breath, Hemoptysis, SOB with Excertion, Pleuritic Pain, Sputum, Wheezing Cardiovascular: negative: chest pain, palpitations, orthopnea, paroxysmal nocturnal dyspnea, edema, light headedness, other Gastrointestinal: negative: Nausea, Vomiting, Abdominal Pain, Diarrhea, Constipation, Melena, Hematochezia, Other Genitourinary: negative: Dysuria, Frequency, Incontinence, Hematuria, Retention , Other Musculoskeletal: negative: Neck Pain, Shoulder Pain, Arm Pain, Back Pain, Hand Pain, Leg Pain, Foot Pain, Other - Medications/Allergies Allergies/Adverse Reactions: Allergies Allergy/AdvReac Type Severity Reaction Status Date / Time No Known Allergies Allergy Verified 07/31/18 10:45 Medications: Current Medications Acetaminophen (Tylenol) 650 mg PO Q4H PRN PRN Reason: WALKER/T > 101.5F/Mild Pain (1-3) Hydrocodone Bitart/Acetaminophen (Amalia 10/325) 1 tab PO Q4H PRN PRN Reason: Pain (1-3) Hydrocodone Bitart/Acetaminophen (Amalia 10/325) 2 tab PO Q4H PRN PRN Reason: PAIN (4-6) Last Admin: 08/05/18 08:36 Dose: 2 tab Albuterol/Ipratropium (Duoneb) 3 ml NEB [id number] Last Admin: 08/05/18 14:24 Dose: 3 ml Amlodipine Besylate (Norvasc) 10 mg PO DAILY [facility] Last Admin: 08/05/18 08:26 Dose: 10 mg Atenolol (Tenormin) 25 mg PO DAILY [facility] Last Admin: 08/05/18 08:31 Dose: 25 mg Atorvastatin Calcium (Lipitor) 40 mg PO HS [facility] Last Admin: 08/04/18 20:38 Dose: 40 mg Bisacodyl (Dulcolax) 10 mg [place] Q6H PRN PRN Reason: Constipation Dextrose/Water (Dextrose 50%) 25 gm SLOW IVP PRN PRN PRN Reason: Hypoglycemia Diphenhydramine HCl (Benadryl) 50 mg PO Q4H PRN PRN Reason: Itching Famotidine (Pepcid) 20 mg PO BID [facility] Last Admin: 08/05/18 08:29 Dose: 20 mg Fluoxetine HCl (Prozac) 20 mg PO DAILY [facility] Last Admin: 08/05/18 08:31 Dose: 20 mg Gabapentin (Neurontin) 300 mg PO TID [facility] Last Admin: 08/05/18 14:47 Dose: 300 mg Glucagon (Glucagon) 1 mg IM PRN PRN PRN Reason: Hypoglycemia Dextrose/Water (D5w) 1,000 mls @ 0 mls/hr IV .Q0M PRN PRN Reason: Hypoglycemia Insulin Glargine 10 units/ (Miscellaneous Medication) 0.1 mls @ 0 mls/hr SC [facility] Last Admin: 08/05/18 08:32 Dose: 0.1 mls Insulin Human Lispro (Humalog) 0 units [place] .MILD SLIDING SCALE PRN PRN Reason: Mild Correctional Scale Last Admin: 08/05/18 06:16 Dose: 2 unit Magnesium Hydroxide (Milk Of Magnesium) 30 ml PO DAILYPRN PRN PRN Reason: Constipation Last Admin: 08/04/18 06:40 Dose: 30 ml Methocarbamol (Robaxin) 0.75 gm SLOW IVP Q6H PRN PRN Reason: Muscle Spasm Ondansetron HCl (Zofran) 4 mg IVP Q6H PRN PRN Reason: Nausea/Vomiting Last Admin: 08/03/18 14:00 Dose: 4 mg Ondansetron HCl (Zofran Odt) 4 mg PO Q6H PRN PRN Reason: Nausea/Vomiting [facility]Pred[facility]) [facility] Promethazine HCl (Phenergan) 12.5 mg IM Q4H PRN PRN Reason: Nausea Sodium Chloride (Flush - Normal Saline) 10 ml IVF PRN PRN PRN Reason: Saline Flush Last Admin: 08/03/18 09:26 Dose: 10 ml Tramadol HCl (Ultram) 50 mg PO Q6H PRN PRN Reason: Mild Pain (1-3) Tramadol HCl (Ultram) 100 mg PO Q6H PRN PRN Reason: Moderate Pain 4-6 Last Admin: 08/03/18 03:22 Dose: 100 mg Zolpidem Tartrate (Ambien) 5 mg PO HSPRN PRN PRN Reason: Insomnia
[2018-08-05] MEDS: Atorvastatin Calcium 40 MG TAB PO SCH (20:23)
[2018-08-06 04:59] LABS: Anion Gap 13 mmol/L (10-20); BUN (Urea Nitrogen) 64 mg/dL (8.4-25.7); Calc. Creatinine Clearance 71 mL/min (70-130); Calcium 9.2 mg/dL (7.8-10.44); Carbon Dioxide 24 mmol/L (23-31); Chloride 106 mmol/L (98-107); Estimated GFR-MDRD 37; Glucose 203 mg/dL (80-115); Potassium 4.8 mmol/L (3.5-5.1); Sodium 138 mmol/L (136-145)
[2018-08-06] MEDS ORDERED: predniSONE 20 MG TAB PO SCH (08:00)
[2018-08-06] MEDS: Gabapentin 300 MG CAP PO SCH ×2 (08:23→14:06)
[2018-08-06] MEDS: Famotidine 20 MG TAB PO SCH (08:23)
[2018-08-06] MEDS: HumaLOG 300 UNITS/3 ML VIAL SC PRN (08:24)
[2018-08-06] MEDS: FLUoxetine HCl 20 MG CAP PO SCH (08:24)
[2018-08-06] MEDS: Amlodipine 10 MG TAB PO SCH (08:24)
[2018-08-06] MEDS: Atenolol 25 MG TAB PO SCH (08:24)
[2018-08-06] MEDS: Insulin Glargine 10 UNITS in Pre-Filled Syringe 1 EACH SC SCH (08:25)
--- NOTE | 2018-08-06 10:26 | PRG ---
DATE OF SERVICE: 08/06/2018 SUBJECTIVE: Mr. Staley is a 68-year-old white male, who recently underwent right total shoulder surgery due to biceps tendinopathy/right shoulder osteoarthritis. He did receive general anesthesia with this. Pursuing this patient due to his acute kidney injury on top of his chronic renal failure. The feeling is that this may be simply a hemodynamically-mediated renal dysfunction. This morning, he voices no new complaints except for some right shoulder joint postop pain. Shortness of breath is actually improved. He is getting a neb treatment at the present time. OBJECTIVE: VITAL SIGNS: Blood pressure 133/66, heart rate 69, respiratory rate 18, temperature 98.1, and pulse ox 92% on room air. GENERAL: The patient is awake, sitting comfortable, obese, not in distress. SKIN: Adequate turgor. HEENT: He has a pinkish conjunctivae. Anicteric sclerae. NECK: No neck mass. No carotid bruits. No JVD. CHEST: No deformities. LUNGS: Clear breath sounds. HEART: Normal sinus rhythm. No murmur. No gallops. No rubs. ABDOMEN: Globular, soft, and nontender. No masses. EXTREMITIES: No edema. No deformities. MEDICATIONS: Medications of August 06, 2018, reviewed. LABORATORY DATA: Laboratories of August 06, 2018; sodium 138, potassium 4.8, chloride 106, carbon dioxide 24, BUN 64, creatinine 1.86, glucose 203, and calcium 9.2. ASSESSMENT AND PLAN: 1. Acute kidney injury on top of his chronic renal failure - superimposed hemodynamically mediated renal dysfunction. Creatinine is now much improved compared to a peak value of 2.2. His creatinine today 1.89 is nearing baseline. We will continue current medications with him. I did review the medication. He is not on any nephrotoxic drugs. Increased p.o. intake with this patient. No indication for any dialytic intervention. Overall, agree with current management. 2. Status post right shoulder joint surgery - doing well. Orthopedics is following. 3. Mild shortness of breath - currently on neb treatment. Clinically asymptomatic. 4. Overall agree with current management. Job ID: [id number]
[2018-08-06 11:51] VITALS: BP 135/63; TEMP 98
== END 2018-08-06 15:10 | disposition home or self-care (01) | DRG 483 ==
LOC: SURG A 08-02 05:47
PROVIDERS: ADMIT Orthopaedic Surgery; ATTEND Orthopaedic Surgery
PROC: 0RRJ0JZ Replacement of Right Shoulder Joint with Synthetic Substitute, Open Approach (ICD-10-PCS; principal; 2018-08-02)
PROC: 3E0T3BZ Introduction of Anesthetic Agent into Peripheral Nerves and Plexi, Percutaneous Approach (ICD-10-PCS; 2018-08-02)
PROC: 0LS30ZZ Reposition Right Upper Arm Tendon, Open Approach (ICD-10-PCS; 2018-08-02)
DX: M19.011 Primary osteoarthritis, right shoulder (principal); J96.01 Acute respiratory failure with hypoxia; N17.9 Acute kidney failure, unspecified; E11.22 Type 2 diabetes mellitus with diabetic chronic kidney disease; I12.9 Hypertensive chronic kidney disease with stage 1 through stage 4 chronic kidney disease, or unspecified chronic kidney disease; N18.3 Chronic kidney disease, stage 3 (moderate); I25.10 Atherosclerotic heart disease of native coronary artery without angina pectoris; M06.9 Rheumatoid arthritis, unspecified; E66.01 Morbid (severe) obesity due to excess calories; Z68.36 Body mass index [BMI] 36.0-36.9, adult; Z96.612 Presence of left artificial shoulder joint; F17.211 Nicotine dependence, cigarettes, in remission; S46.211A Strain of muscle, fascia and tendon of other parts of biceps, right arm, initial encounter
CPT/HCPCS: 36415; 36416; 71046; 71250; 76770; 80048; 80202; 81001; 82570; 82805; 82947; 84156; 84300; 84540; 85025; 85027; 93005; 93010; A4306; C1713; J0670; J1100; J1825; J2001; J2250; J2405; J2704; J2795; J2920; J3010; J3370; J3490; J7050; J7620

== ENCOUNTER 2021-02-16 11:57 | Inpatient (IN) | payer MEDICARE, OTHER ==
[2021-02-16 13:02] LABS: #Basophils 0.1 thou/uL (0.0-0.2); #Lymphocytes 0.3 thou/uL (1.20-3.40); #Monocytes 0.8 thou/uL (0.11-0.59); #Neutrophils 11.8 thou/uL (1.40-6.50); %Basophils 0.7 % (0.0-1.0); %Lymphocytes 2.3 % (21.0-51.0); Hemoglobin 11.1 g/dL (14.0-18.0); Mean Corpuscular HGB CONC 33.6 g/dL (32.0-36.0); Mean Corpuscular Hemoglobin 32.1 pg (27.0-31.0); Mean Corpuscular Volume 95.6 fL (78.0-98.0); Mean Platelet Volume 7.2 fL (7.4-10.4); Platelet Count 262 thou/uL (130-400); RBC Distribution Width 12.6 % (11.5-14.5); Red Blood Cell (RBC) Count 3.45 mill/uL (4.70-6.10)
[2021-02-16] MEDS ORDERED: Acetaminophen 500 MG TAB ONE (13:20)
[2021-02-16 13:29] LABS: ALT (SGPT) 15 U/L (8-55); AST (SGOT) 17 U/L (5-34); Alkaline Phosphatase 69 U/L (40-110); Anion Gap 10 mmol/L (10-20); BUN (Urea Nitrogen) 47 mg/dL (8.4-25.7); Bilirubin, Total 0.7 mg/dL (0.2-1.2); Calc. Creatinine Clearance 0 mL/min (70-130); Calcium 8.7 mg/dL (7.8-10.44); Carbon Dioxide 27 mmol/L (23-31); Chloride 101 mmol/L (98-107); Globulin 3.7 g/dL (2.4-3.5); Glucose 178 mg/dL (80-115); Potassium 4.1 mmol/L (3.5-5.1); Protein, Total 6.7 g/dL (5.8-8.1); Sodium 134 mmol/L (136-145)
[2021-02-16 13:50] LABS: CKMB 0.5 ng/mL (0-6.6)
[2021-02-16 14:19] LABS: SARS-CoV-2 NAA Rapid Test DETECTED (NotDetected)
[2021-02-16] MEDS ORDERED: Heparin 10,000 UNITS/ 10 ML VIAL ONE (14:30)
[2021-02-16] MEDS ORDERED: cefTRIAXone\\ROCEPHIN 2 GM VIAL ONE (14:30)
[2021-02-16] MEDS ORDERED: Heparin 25,000 units/D5W 500 ML ONE (14:30)
[2021-02-16] MEDS ORDERED: Azithromycin 500 MG VIAL ONE (14:30)
[2021-02-16 14:49] LABS: Actual Bicarbonate (HCO3a) 21.3 mEq/L (22-28); Analyzer IN Cardio ER; Base Excess (BEa) -3.2 mEq/L (-2.0 to +3.0); CO2 Tension 36.5 mmHg (35.0-45.0); Calcium, Ionized (arterial) 1.15 mmol/L (1.12-1.30); Carboxyhemoglobin (COHb) 0.1 gm% (0.0-3.0); Hemoglobin (Hb) 13.5 g/dL (14.0-18.0); O2 Tension (PaO2), arterial 62.2 mmHg (> 80.0); Potassium - ABG Lab 4.12 mmol/L (3.70-5.30); pH, Arterial 7.38 (7.35-7.45)
[2021-02-16 14:55] LABS: Puncture Site RRA
[2021-02-16 14:56] LABS: ALV-art Gradient 377.015 mmHg (0-20)
[2021-02-16 14:58] LABS: INR-International Normal Ratio 1.2; Prothrombin Time 15.1 sec (12.0-14.7)
[2021-02-16] MEDS ORDERED: Calcium Carbonate 500 MG ChewTAB PO PRN (15:21)
[2021-02-16] MEDS ORDERED: HYDROcodone/Acetaminophen 5/325 mg Tablet PO PRN (15:21)
[2021-02-16] MEDS ORDERED: Zolpidem Tartrate 5 MG TAB PO PRN (15:21)
[2021-02-16] MEDS ORDERED: Ondansetron ODT 4 MG TAB PO PRN (15:21)
[2021-02-16] MEDS ORDERED: Bisacodyl 5 MG TAB PO PRN (15:21)
[2021-02-16] MEDS ORDERED: Senokot S 8.6-50 MG TAB PO PRN (15:21)
[2021-02-16] MEDS ORDERED: Acetaminophen 325 MG TAB PO PRN (15:21)
[2021-02-16] MEDS ORDERED: Loperamide HCl 2 MG CAP PO PRN (15:21)
[2021-02-16] MEDS ORDERED: Dextrose 50% Abboject 50 ML SYRINGE SLOW IVP PRN (15:23)
[2021-02-16] MEDS ORDERED: Dextrose 5% in Water 1,000 ML IV PRN (15:23)
[2021-02-16] MEDS ORDERED: Heparin 10,000 UNITS/ 10 ML VIAL SLOW IVP SCH (17:00)
[2021-02-16] MEDS ORDERED: Heparin 25,000 units/D5W 500 ML IVPB SCH (17:00)
[2021-02-16 17:12] LABS: Troponin I 0.036 ng/mL (< 0.028)
[2021-02-16 17:29] LABS: Hemoglobin 10.9 g/dL (14.0-18.0); Platelet Count 269 thou/uL (130-400)
[2021-02-16] MEDS ORDERED: Albuterol 200 PUFF (6.7GM INHALER) INH PRN (18:13)
[2021-02-16 18:19] LABS: PTT Greater than 250.0 sec (22.9-36.1)
[2021-02-16] MEDS ORDERED: Atropine Sulfate 1 mg/10 ml Syringe ONE (19:08)
[2021-02-16 20:32] LABS: Troponin I 0.026 ng/mL (< 0.028)
[2021-02-16] MEDS ORDERED: Albuterol 200 PUFF (6.7GM INHALER) ONE (20:32)
[2021-02-16] MEDS: Albuterol 200 PUFF (6.7GM INHALER) INH SCH (20:37)
[2021-02-16 22:43] LABS: PTT Greater than 250.0 sec (22.9-36.1)
[2021-02-17 00:10] LABS: PTT 205.6 sec (22.9-36.1)
[2021-02-17] MEDS ORDERED: DOPamine 400 MG/D5W 250 ML 250 ML ONE ×2 (02:36→12:48)
[2021-02-17] MEDS: Albuterol 200 PUFF (6.7GM INHALER) INH SCH ×4 (02:52→18:41)
[2021-02-17 04:03] LABS: #Lymphocytes 0.9 thou/uL (1.20-3.40); #Monocytes 0.9 thou/uL (0.11-0.59); #Neutrophils 12.8 thou/uL (1.40-6.50); %Lymphocytes 5.9 % (21.0-51.0); %Monocytes 5.9 % (0.0-10.0); %Neutrophils 88.2 % (42.0-75.0); Hemoglobin 10.7 g/dL (14.0-18.0); Mean Corpuscular HGB CONC 33.6 g/dL (32.0-36.0); Mean Corpuscular Hemoglobin 32.5 pg (27.0-31.0); Mean Corpuscular Volume 96.7 fL (78.0-98.0); Mean Platelet Volume 7.7 fL (7.4-10.4); Platelet Count 260 thou/uL (130-400); RBC Distribution Width 12.6 % (11.5-14.5); Red Blood Cell (RBC) Count 3.31 mill/uL (4.70-6.10); White Blood Cell (WBC) Count 14.5 thou/uL (4.8-10.8)
[2021-02-17 04:21] LABS: Lactic Acid 1.1 mmol/L (0.5-2.2)
[2021-02-17 04:36] LABS: ALT (SGPT) 15 U/L (8-55); AST (SGOT) 15 U/L (5-34); Albumin 3.1 g/dL (3.4-4.8); Alkaline Phosphatase 69 U/L (40-110); Anion Gap 17 mmol/L (10-20); BUN (Urea Nitrogen) 57 mg/dL (8.4-25.7); Bilirubin, Total 0.3 mg/dL (0.2-1.2); Calc. Creatinine Clearance 32 mL/min (70-130); Calcium 8.4 mg/dL (7.8-10.44); Carbon Dioxide 20 mmol/L (23-31); Chloride 101 mmol/L (98-107); Globulin 3.6 g/dL (2.4-3.5); Glucose 236 mg/dL (80-115); Magnesium 2.1 mg/dL (1.6-2.6); Phosphorus 5.6 mg/dL (2.3-4.7); Potassium 4.3 mmol/L (3.5-5.1); Protein, Total 6.7 g/dL (5.8-8.1); Sodium 134 mmol/L (136-145)
[2021-02-17] MEDS: DOPamine 400 MG/D5W 250 ML 250 ML IVPB SCH ×2 (06:00→19:22)
[2021-02-17] MEDS ORDERED: Furosemide 40 MG/4 ML VIAL SLOW IVP SCH (06:00)
[2021-02-17] MEDS ORDERED: Furosemide 40 MG/4 ML VIAL ONE (06:59)
[2021-02-17] MEDS ORDERED: Ondansetron PF 4 MG/2 ML Vial ONE (07:41)
[2021-02-17] MEDS: Ondansetron PF 4 MG/2 ML Vial IVP PRN (07:54)
[2021-02-17] MEDS ORDERED: Cholecalciferol 1,000 UNITS (25 MCG) TAB ONE (09:25)
[2021-02-17] MEDS ORDERED: Aspirin Chewable 81 MG TAB ONE (09:25)
[2021-02-17] MEDS ORDERED: Ascorbic Acid 500 mg Chewable Tablet ONE (09:26)
[2021-02-17] MEDS ORDERED: Dexamethasone 4 mg/ml Vial ONE ×2 (09:27→09:47)
[2021-02-17] MEDS: Aspirin Chewable 81 MG TAB PO SCH (09:45)
[2021-02-17] MEDS: Dexamethasone 4 mg/ml Vial SLOW IVP SCH (09:45)
[2021-02-17] MEDS: Ascorbic Acid 500 mg Chewable Tablet PO SCH (09:45)
[2021-02-17] MEDS: Cholecalciferol 1,000 UNITS (25 MCG) TAB PO SCH (09:45)
[2021-02-17] MEDS: Fluticasone Propionate Nasal Spray 16 gm Bottle NASAL SCH (09:45)
[2021-02-17] MEDS ORDERED: Zinc Sulfate 220 MG CAP ONE (09:48)
[2021-02-17] MEDS: Zinc Sulfate 220 MG CAP PO SCH (09:52)
[2021-02-17] MEDS: HumaLOG 300 UNITS/3 ML VIAL SC PRN (12:18)
[2021-02-17] MEDS ORDERED: HumaLOG 300 UNITS/3 ML VIAL ONE (12:19)
[2021-02-17 13:08] LABS: Actual Bicarbonate (HCO3a) 21.2 mEq/L (22-28); Analyzer IN Cardio ER; Base Excess (BEa) -5.9 mEq/L (-2.0 to +3.0); CO2 Tension 48.5 mmHg (35.0-45.0); Calcium, Ionized (arterial) 1.13 mmol/L (1.12-1.30); Carboxyhemoglobin (COHb) 0.3 gm% (0.0-3.0); Hemoglobin (Hb) 12.5 g/dL (14.0-18.0); Potassium - ABG Lab 4.23 mmol/L (3.70-5.30); pH, Arterial 7.26 (7.35-7.45)
[2021-02-17 13:10] LABS: O2 Tension (PaO2), arterial 34.6 mmHg (> 80.0)
[2021-02-17 18:27] LABS: Bacteria/HPF None Seen HPF (None Seen); Bilirubin Negative (Negative); Blood, Urine 2+ (Negative); Clarity Turbid (Clear); Glucose, Urine (Dipstick) 50 mg/dL (Negative); Ketone, Urine Negative (Negative); Leukocyte Negative Leu/uL (Negative); Nitrite Negative (Negative); Protein, Urine (Dipstick) 200 mg/dL (Neg-Trace); Specific Gravity, Urine 1.016 (1.002-1.036); Squamous Epithelial None Seen HPF (0-3); Urobilinogen Normal mg/dL (Less than 2); WBC/HPF 0-3 HPF (0-3); pH, Urine 5.5 (5.0-9.0)
[2021-02-17 18:54] LABS: Creatinine, Urine 176.87 mg/dL (63-166)
[2021-02-17] MEDS: METHYLPREDNISOLONE SOD SUCC IVPB SCH (21:07)
[2021-02-17] MEDS: cefTRIAXone\\ROCEPHIN 2 GM in Sodium Chloride 0.9% 100 ML IVPB SCH (21:07)
[2021-02-17] MEDS: SODIUM CHLORIDE 0.9% IVPB SCH (21:07)
[2021-02-17] MEDS: Pantoprazole 40 MG VIAL IVP SCH (21:08)
[2021-02-17] MEDS: Guaifenesin DM 100-10/5 ML UDCUP PO PRN (21:34)
[2021-02-18 01:00] LABS: Actual Bicarbonate (HCO3a) 20.8 mEq/L (22-28); Base Excess (BEa) -6.2 mEq/L (-2.0 to +3.0); CO2 Tension 47.2 mmHg (35.0-45.0); Calcium, Ionized (arterial) 1.08 mmol/L (1.12-1.30); Carboxyhemoglobin (COHb) 0.3 gm% (0.0-3.0); Hemoglobin (Hb) 11.6 g/dL (14.0-18.0); Potassium - ABG Lab 4.29 mmol/L (3.70-5.30); pH, Arterial 7.26 (7.35-7.45)
[2021-02-18 01:03] LABS: O2 Tension (PaO2), arterial 42.1 mmHg (> 80.0); Puncture Site LRA
[2021-02-18] MEDS: DOPamine 400 MG/D5W 250 ML 250 ML IVPB SCH ×2 (02:25→12:36)
[2021-02-18 03:50] LABS: O2 Tension (PaO2), arterial 40.2 mmHg (> 80.0); pH, Arterial 7.27 (7.35-7.45)
[2021-02-18 03:51] LABS: Base Excess (BEa) -6.7 mEq/L (-2.0 to +3.0); Calcium, Ionized (arterial) 1.06 mmol/L (1.12-1.30); Carboxyhemoglobin (COHb) 0.3 gm% (0.0-3.0); Hemoglobin (Hb) 11.6 g/dL (14.0-18.0); Potassium - ABG Lab 4.46 mmol/L (3.70-5.30)
[2021-02-18 03:52] LABS: Puncture Site LRA
[2021-02-18] MEDS ORDERED: Propofol 1,000 MG/100 ML VIAL IV ONE (04:01)
[2021-02-18 04:03] LABS: #Lymphocytes 0.5 thou/uL (1.20-3.40); #Monocytes 0.4 thou/uL (0.11-0.59); #Neutrophils 13.4 thou/uL (1.40-6.50); %Eosinophils 0.1 % (0.0-10.0); %Lymphocytes 3.6 % (21.0-51.0); %Monocytes 2.9 % (0.0-10.0); %Neutrophils 93.4 % (42.0-75.0); Hemoglobin 10.9 g/dL (14.0-18.0); Mean Corpuscular HGB CONC 33.1 g/dL (32.0-36.0); Mean Corpuscular Hemoglobin 31.6 pg (27.0-31.0); Mean Corpuscular Volume 95.5 fL (78.0-98.0); Mean Platelet Volume 7.7 fL (7.4-10.4); Platelet Count 337 thou/uL (130-400); RBC Distribution Width 12.3 % (11.5-14.5); Red Blood Cell (RBC) Count 3.45 mill/uL (4.70-6.10); White Blood Cell (WBC) Count 14.3 thou/uL (4.8-10.8)
[2021-02-18] MEDS ORDERED: Vecuronium 10 MG VIAL IVP PRN (04:06)
[2021-02-18] MEDS ORDERED: Propofol 1,000 MG/100 ML VIAL IV PRN (04:15)
[2021-02-18] MEDS ORDERED: Propofol BOLUS 1,000 MG/100 ML VIAL IV PRN (04:15)
[2021-02-18] MEDS ORDERED: Fentanyl CADD 100 ML IV SCH (04:15)
[2021-02-18] MEDS ORDERED: DISCONTINUE PREVIOUS NARCOTIC PAIN MEDICATIONS AND BENZODIAZEPINES FS SCH (04:15)
[2021-02-18] MEDS ORDERED: Morphine 2 MG/ML VIAL SLOW IVP PRN (04:15)
[2021-02-18] MEDS ORDERED: Lorazepam 2 MG/ML VIAL SLOW IVP PRN (04:15)
[2021-02-18] MEDS ORDERED: Fentanyl BOLUS 250 ML IVPB PRN (04:15)
[2021-02-18 04:24] LABS: ALT (SGPT) 20 U/L (8-55); AST (SGOT) 22 U/L (5-34); Albumin 3.1 g/dL (3.4-4.8); Alkaline Phosphatase 70 U/L (40-110); Anion Gap 19 mmol/L (10-20); BUN (Urea Nitrogen) 78 mg/dL (8.4-25.7); Bilirubin, Total 0.3 mg/dL (0.2-1.2); Calc. Creatinine Clearance 25 mL/min (70-130); Calcium 8.3 mg/dL (7.8-10.44); Carbon Dioxide 21 mmol/L (23-31); Chloride 96 mmol/L (98-107); Globulin 3.9 g/dL (2.4-3.5); Glucose 221 mg/dL (80-115); Potassium 4.4 mmol/L (3.5-5.1); Sodium 132 mmol/L (136-145)
[2021-02-18] MEDS ORDERED: Enoxaparin Sodium 120 MG/0.8 ML SYRINGE SC SCH (05:30)
[2021-02-18] MEDS: HumaLOG 300 UNITS/3 ML VIAL SC PRN ×4 (06:45→21:40)
[2021-02-18] MEDS: Aspirin Chewable 81 MG TAB PO SCH (08:45)
[2021-02-18] MEDS: Ascorbic Acid 500 mg Chewable Tablet PO SCH (08:45)
[2021-02-18] MEDS: Zinc Sulfate 220 MG CAP PO SCH (08:45)
[2021-02-18] MEDS: Pantoprazole 40 MG VIAL IVP SCH ×2 (08:45→21:18)
[2021-02-18] MEDS: Enoxaparin Sodium 40 MG/0.4 ML SYRINGE SC SCH ×2 (08:45→21:18)
[2021-02-18] MEDS: Cholecalciferol 1,000 UNITS (25 MCG) TAB PO SCH (08:48)
[2021-02-18] MEDS: Dexamethasone 4 mg/ml Vial SLOW IVP SCH (09:00)
[2021-02-18] MEDS: Fluticasone Propionate Nasal Spray 16 gm Bottle NASAL SCH (09:12)
[2021-02-18] MEDS: Albumin 25% 25 GM/100 ML BOT IVPB SCH ×3 (11:30→23:39)
[2021-02-18 11:56] LABS: ANA Symphony (Qualitative) Negative (Negative); ANA Symphony (Quantitative) 0.3 Ratio (< 0.7 Negative); dsDNA IgG Antibody 0.8 IU/mL (<10 Negative)
[2021-02-18 17:07] LABS: Hemoglobin 10.7 g/dL (14.0-18.0); Platelet Count 273 thou/uL (130-400)
[2021-02-18] MEDS: Lorazepam 2 MG/ML VIAL SLOW IVP PRN (17:17)
[2021-02-18] MEDS: Morphine 2 MG/ML VIAL SLOW IVP PRN (17:17)
[2021-02-18] MEDS: SODIUM CHLORIDE 0.9% IVPB SCH (20:01)
[2021-02-18] MEDS: cefTRIAXone\\ROCEPHIN 2 GM in Sodium Chloride 0.9% 100 ML IVPB SCH (20:01)
[2021-02-18] MEDS: METHYLPREDNISOLONE SOD SUCC IVPB SCH (20:01)
[2021-02-19] MEDS: Albumin 25% 25 GM/100 ML BOT IVPB SCH (05:06)
[2021-02-19 05:36] LABS: #Lymphocytes 0.4 thou/uL (1.20-3.40); #Monocytes 0.4 thou/uL (0.11-0.59); #Neutrophils 8.6 thou/uL (1.40-6.50); %Eosinophils 0.1 % (0.0-10.0); %Monocytes 3.9 % (0.0-10.0); Hemoglobin 10.6 g/dL (14.0-18.0); Mean Corpuscular HGB CONC 33.3 g/dL (32.0-36.0); Mean Corpuscular Hemoglobin 31.9 pg (27.0-31.0); Mean Corpuscular Volume 95.6 fL (78.0-98.0); Mean Platelet Volume 7.6 fL (7.4-10.4); Platelet Count 281 thou/uL (130-400); RBC Distribution Width 12.3 % (11.5-14.5); Red Blood Cell (RBC) Count 3.32 mill/uL (4.70-6.10); White Blood Cell (WBC) Count 9.4 thou/uL (4.8-10.8)
[2021-02-19] MEDS: HumaLOG 300 UNITS/3 ML VIAL SC PRN ×4 (05:44→21:20)
[2021-02-19 05:59] LABS: ALT (SGPT) 15 U/L (8-55); AST (SGOT) 18 U/L (5-34); Albumin 3.4 g/dL (3.4-4.8); Alkaline Phosphatase 58 U/L (40-110); Anion Gap 18 mmol/L (10-20); BUN (Urea Nitrogen) 103 mg/dL (8.4-25.7); Bilirubin, Total 0.3 mg/dL (0.2-1.2); Calc. Creatinine Clearance 21 mL/min (70-130); Carbon Dioxide 21 mmol/L (23-31); Chloride 99 mmol/L (98-107); Globulin 3.3 g/dL (2.4-3.5); Glucose 189 mg/dL (80-115); Potassium 5.2 mmol/L (3.5-5.1); Protein, Total 6.7 g/dL (5.8-8.1); Sodium 133 mmol/L (136-145)
[2021-02-19] MEDS: Ondansetron PF 4 MG/2 ML Vial IVP PRN (06:01)
[2021-02-19] MEDS: Pantoprazole 40 MG VIAL IVP SCH ×2 (08:49→20:05)
[2021-02-19] MEDS: Aspirin Chewable 81 MG TAB PO SCH (08:49)
[2021-02-19] MEDS: Cholecalciferol 1,000 UNITS (25 MCG) TAB PO SCH (08:49)
[2021-02-19] MEDS: Ascorbic Acid 500 mg Chewable Tablet PO SCH (08:49)
[2021-02-19] MEDS: Enoxaparin Sodium 40 MG/0.4 ML SYRINGE SC SCH ×2 (08:49→20:04)
[2021-02-19] MEDS: Fluticasone Propionate Nasal Spray 16 gm Bottle NASAL SCH (08:50)
[2021-02-19] MEDS: Zinc Sulfate 220 MG CAP PO SCH (08:50)
[2021-02-19] MEDS: Morphine 2 MG/ML VIAL SLOW IVP PRN (14:57)
[2021-02-19] MEDS: METHYLPREDNISOLONE SOD SUCC IVPB SCH (20:04)
[2021-02-19] MEDS: SODIUM CHLORIDE 0.9% IVPB SCH (20:04)
[2021-02-19] MEDS: cefTRIAXone\\ROCEPHIN 2 GM in Sodium Chloride 0.9% 100 ML IVPB SCH (20:56)
[2021-02-20 05:02] LABS: #Lymphocytes 0.4 thou/uL (1.20-3.40); #Monocytes 0.3 thou/uL (0.11-0.59); #Neutrophils 7.9 thou/uL (1.40-6.50); %Eosinophils 0.1 % (0.0-10.0); %Lymphocytes 4.8 % (21.0-51.0); %Monocytes 3.3 % (0.0-10.0); %Neutrophils 91.9 % (42.0-75.0); Hemoglobin 9.6 g/dL (14.0-18.0); Mean Corpuscular HGB CONC 33.8 g/dL (32.0-36.0); Mean Corpuscular Volume 94.7 fL (78.0-98.0); Mean Platelet Volume 7.8 fL (7.4-10.4); Platelet Count 325 thou/uL (130-400); RBC Distribution Width 12.3 % (11.5-14.5); White Blood Cell (WBC) Count 8.6 thou/uL (4.8-10.8)
[2021-02-20 05:28] LABS: ALT (SGPT) 19 U/L (8-55); AST (SGOT) 18 U/L (5-34); Albumin 3.6 g/dL (3.4-4.8); Alkaline Phosphatase 64 U/L (40-110); Anion Gap 21 mmol/L (10-20); BUN (Urea Nitrogen) 119 mg/dL (8.4-25.7); Bilirubin, Total 0.3 mg/dL (0.2-1.2); Calc. Creatinine Clearance 18 mL/min (70-130); Calcium 7.9 mg/dL (7.8-10.44); Carbon Dioxide 19 mmol/L (23-31); Chloride 99 mmol/L (98-107); Globulin 3.2 g/dL (2.4-3.5); Glucose 211 mg/dL (80-115); Magnesium 2.5 mg/dL (1.6-2.6); Potassium 5.3 mmol/L (3.5-5.1); Protein, Total 6.8 g/dL (5.8-8.1); Sodium 134 mmol/L (136-145)
[2021-02-20 05:30] LABS: Phosphorus 9.2 mg/dL (2.3-4.7)
[2021-02-20] MEDS: Ascorbic Acid 500 mg Chewable Tablet PO SCH (08:49)
[2021-02-20] MEDS: Zinc Sulfate 220 MG CAP PO SCH (08:49)
[2021-02-20] MEDS: Cholecalciferol 1,000 UNITS (25 MCG) TAB PO SCH (08:49)
[2021-02-20] MEDS: Enoxaparin Sodium 40 MG/0.4 ML SYRINGE SC SCH (08:50)
[2021-02-20] MEDS: Aspirin Chewable 81 MG TAB PO SCH (08:50)
[2021-02-20] MEDS: Pantoprazole 40 MG VIAL IVP SCH ×2 (08:50→20:38)
[2021-02-20] MEDS: Fluticasone Propionate Nasal Spray 16 gm Bottle NASAL SCH (09:15)
[2021-02-20 15:50] LABS: Hemoglobin 9.9 g/dL (14.0-18.0); Platelet Count 338 thou/uL (130-400)
[2021-02-20] MEDS: Sodium Chloride 0.45% 1,000 ML IV SCH (16:00)
[2021-02-20] MEDS: cefTRIAXone\\ROCEPHIN 2 GM in Sodium Chloride 0.9% 100 ML IVPB SCH (20:37)
[2021-02-20] MEDS: Enoxaparin Sodium 30 MG/0.3 ML SYRINGE SC SCH (20:38)
[2021-02-20] MEDS: HumaLOG 300 UNITS/3 ML VIAL SC PRN (20:38)
[2021-02-20] MEDS: Lorazepam 2 MG/ML VIAL SLOW IVP PRN (20:38)
[2021-02-20] MEDS: METHYLPREDNISOLONE SOD SUCC IVPB SCH (21:56)
[2021-02-20] MEDS: SODIUM CHLORIDE 0.9% IVPB SCH (21:56)
[2021-02-21] MEDS: HumaLOG 300 UNITS/3 ML VIAL SC PRN ×2 (06:08→17:42)
[2021-02-21 07:52] LABS: #Lymphocytes 0.4 thou/uL (1.20-3.40); #Monocytes 0.6 thou/uL (0.11-0.59); %Basophils 0.1 % (0.0-1.0); %Eosinophils 0.3 % (0.0-10.0); %Lymphocytes 3.6 % (21.0-51.0); %Monocytes 4.6 % (0.0-10.0); %Neutrophils 91.4 % (42.0-75.0); Hemoglobin 10.5 g/dL (14.0-18.0); Mean Corpuscular HGB CONC 34.1 g/dL (32.0-36.0); Mean Corpuscular Volume 93.8 fL (78.0-98.0); Mean Platelet Volume 7.3 fL (7.4-10.4); Platelet Count 346 thou/uL (130-400); RBC Distribution Width 12.5 % (11.5-14.5); Red Blood Cell (RBC) Count 3.29 mill/uL (4.70-6.10)
[2021-02-21 08:08] LABS: Albumin 3.6 g/dL (3.4-4.8); Anion Gap 23 mmol/L (10-20); Calc. Creatinine Clearance 16 mL/min (70-130); Calcium 7.7 mg/dL (7.8-10.44); Carbon Dioxide 17 mmol/L (23-31); Chloride 99 mmol/L (98-107); Glucose 247 mg/dL (80-115); Potassium 5.3 mmol/L (3.5-5.1); Sodium 134 mmol/L (136-145)
[2021-02-21 08:11] LABS: Phosphorus 9.3 mg/dL (2.3-4.7)
[2021-02-21 08:19] LABS: BUN (Urea Nitrogen) 134 mg/dL (8.4-25.7); BUN/Creatinine Ratio 15.73
[2021-02-21] MEDS ORDERED: Heparin 10,000 UNITS/ 10 ML VIAL ONE (08:20)
[2021-02-21] MEDS: Aspirin Chewable 81 MG TAB PO SCH (09:49)
[2021-02-21] MEDS: Pantoprazole 40 MG VIAL IVP SCH ×2 (09:49→20:20)
[2021-02-21] MEDS: Ascorbic Acid 500 mg Chewable Tablet PO SCH (09:49)
[2021-02-21] MEDS: Cholecalciferol 1,000 UNITS (25 MCG) TAB PO SCH (09:49)
[2021-02-21] MEDS: Fluticasone Propionate Nasal Spray 16 gm Bottle NASAL SCH (11:09)
[2021-02-21 11:37] LABS: HBSAg Index 0.18 S/CO (0-0.99); Hep B Surf Ag Non-Reactive S/CO (NonReactive)
[2021-02-21] MEDS: Sodium Chloride 0.45% 1,000 ML IV SCH (12:45)
[2021-02-21] MEDS: cefTRIAXone\\ROCEPHIN 2 GM in Sodium Chloride 0.9% 100 ML IVPB SCH (19:49)
[2021-02-21] MEDS: Enoxaparin Sodium 30 MG/0.3 ML SYRINGE SC SCH (20:19)
[2021-02-21] MEDS: METHYLPREDNISOLONE SOD SUCC IVPB SCH (21:32)
[2021-02-21] MEDS: SODIUM CHLORIDE 0.9% IVPB SCH (21:32)
[2021-02-22] MEDS: Lorazepam 2 MG/ML VIAL SLOW IVP PRN (03:53)
[2021-02-22] MEDS: Ondansetron PF 4 MG/2 ML Vial IVP PRN (03:55)
[2021-02-22] MEDS: HumaLOG 300 UNITS/3 ML VIAL SC PRN ×2 (05:42→13:43)
[2021-02-22 06:22] LABS: Band 3 % (5-11); Hemoglobin 10.6 g/dL (14.0-18.0); Lymphocytes 3 % (21-51); MDiff Complete? YES; Mean Corpuscular HGB CONC 35.1 g/dL (32.0-36.0); Mean Corpuscular Hemoglobin 32.7 pg (27.0-31.0); Mean Corpuscular Volume 93.1 fL (78.0-98.0); Mean Platelet Volume 7.2 fL (7.4-10.4); Monocytes 4 % (0-10); Neutrophil 90 % (42-75); Platelet Count 347 thou/uL (130-400); Platelet Morphology Comment Appears Adequate; RBC Distribution Width 12.4 % (11.5-14.5); Red Blood Cell (RBC) Count 3.23 mill/uL (4.70-6.10); White Blood Cell (WBC) Count 13.5 thou/uL (4.8-10.8)
[2021-02-22 06:30] LABS: Anion Gap 17 mmol/L (10-20); Calc. Creatinine Clearance 18 mL/min (70-130); Calcium 7.7 mg/dL (7.8-10.44); Carbon Dioxide 21 mmol/L (23-31); Chloride 101 mmol/L (98-107); Glucose 274 mg/dL (80-115); Potassium 5.1 mmol/L (3.5-5.1); Sodium 134 mmol/L (136-145)
[2021-02-22 06:41] LABS: BUN (Urea Nitrogen) 126 mg/dL (8.4-25.7)
[2021-02-22] MEDS ORDERED: Heparin 10,000 UNITS/ 10 ML VIAL ONE (08:22)
[2021-02-22] MEDS: Morphine 2 MG/ML VIAL SLOW IVP PRN (09:31)
[2021-02-22] MEDS: Pantoprazole 40 MG VIAL IVP SCH ×2 (09:31→20:30)
[2021-02-22] MEDS: Ascorbic Acid 500 mg Chewable Tablet PO SCH (09:50)
[2021-02-22] MEDS: Aspirin Chewable 81 MG TAB PO SCH (09:50)
[2021-02-22] MEDS: Fluticasone Propionate Nasal Spray 16 gm Bottle NASAL SCH (09:50)
[2021-02-22] MEDS: Cholecalciferol 1,000 UNITS (25 MCG) TAB PO SCH (09:50)
[2021-02-22] MEDS: SODIUM CHLORIDE 0.9% IVPB SCH (20:30)
[2021-02-22] MEDS: METHYLPREDNISOLONE SOD SUCC IVPB SCH (20:30)
[2021-02-22] MEDS: cefTRIAXone\\ROCEPHIN 2 GM in Sodium Chloride 0.9% 100 ML IVPB SCH (20:30)
[2021-02-22] MEDS: Lantus 1000 UNITS/10 ML VIAL SC SCH (20:31)
[2021-02-22] MEDS: Enoxaparin Sodium 30 MG/0.3 ML SYRINGE SC SCH (20:31)
[2021-02-23 08:42] LABS: Hemoglobin 11.1 g/dL (14.0-18.0); Mean Corpuscular HGB CONC 33.5 g/dL (32.0-36.0); Mean Corpuscular Volume 92.7 fL (78.0-98.0); Platelet Count 387 thou/uL (130-400); RBC Distribution Width 12.4 % (11.5-14.5); Red Blood Cell (RBC) Count 3.56 mill/uL (4.70-6.10); White Blood Cell (WBC) Count 13.9 thou/uL (4.8-10.8)
[2021-02-23] MEDS ORDERED: Heparin 10,000 UNITS/ 10 ML VIAL ONE (08:51)
[2021-02-23 08:59] LABS: Anion Gap 18 mmol/L (10-20); BUN (Urea Nitrogen) 114 mg/dL (8.4-25.7); Calc. Creatinine Clearance 22 mL/min (70-130); Calcium 8.3 mg/dL (7.8-10.44); Carbon Dioxide 24 mmol/L (23-31); Chloride 104 mmol/L (98-107); Glucose 210 mg/dL (80-115); Potassium 4.9 mmol/L (3.5-5.1); Sodium 141 mmol/L (136-145)
[2021-02-23] MEDS: Pantoprazole 40 MG VIAL IVP SCH ×2 (08:59→20:45)
[2021-02-23] MEDS: Fluticasone Propionate Nasal Spray 16 gm Bottle NASAL SCH (09:00)
[2021-02-23] MEDS: Ascorbic Acid 500 mg Chewable Tablet PO SCH (09:00)
[2021-02-23] MEDS: Aspirin Chewable 81 MG TAB PO SCH (09:00)
[2021-02-23] MEDS: Cholecalciferol 1,000 UNITS (25 MCG) TAB PO SCH (09:00)
[2021-02-23 09:51] LABS: Band 5 % (5-11); Lymphocytes 5 % (21-51); MDiff Complete? YES; Metamyelocyte 4 % (0-0); Monocytes 4 % (0-10); Myelocyte 1 % (0-0); Neutrophil 81 % (42-75); Platelet Morphology Comment Appears Adequate; Polychromasia SLIGHT = 2-3 cells (100X) (0-2/hpf)
[2021-02-23 15:13] LABS: Cytoplasmic (C-ANCA) <1:20 titer (Neg:<1:20); Myeloperoxidase AutoAbs <9.0 U/mL (0.0-9.0); Perinuclear (P-ANCA) <1:20 titer (Neg:<1:20); Proteinase-3 AutoAbs Less than 3.5 U/mL (0.0-3.5)
[2021-02-23] MEDS: cefTRIAXone\\ROCEPHIN 2 GM in Sodium Chloride 0.9% 100 ML IVPB SCH (20:45)
[2021-02-23] MEDS: SODIUM CHLORIDE 0.9% IVPB SCH (20:46)
[2021-02-23] MEDS: METHYLPREDNISOLONE SOD SUCC IVPB SCH (20:46)
[2021-02-23] MEDS: Enoxaparin Sodium 30 MG/0.3 ML SYRINGE SC SCH (20:46)
[2021-02-23] MEDS: Lantus 1000 UNITS/10 ML VIAL SC SCH (20:46)
[2021-02-24] MEDS: HumaLOG 300 UNITS/3 ML VIAL SC PRN ×3 (05:31→16:57)
[2021-02-24 07:05] LABS: Anion Gap 19 mmol/L (10-20); BUN (Urea Nitrogen) 88 mg/dL (8.4-25.7); Calc. Creatinine Clearance 27 mL/min (70-130); Calcium 8.7 mg/dL (7.8-10.44); Carbon Dioxide 23 mmol/L (23-31); Chloride 103 mmol/L (98-107); Glucose 240 mg/dL (80-115); Potassium 4.7 mmol/L (3.5-5.1); Sodium 140 mmol/L (136-145)
[2021-02-24 07:07] LABS: Hemoglobin 11.8 g/dL (14.0-18.0); Mean Corpuscular HGB CONC 33.4 g/dL (32.0-36.0); Mean Corpuscular Hemoglobin 31.2 pg (27.0-31.0); Mean Corpuscular Volume 93.4 fL (78.0-98.0); Platelet Count 378 thou/uL (130-400); RBC Distribution Width 12.5 % (11.5-14.5); Red Blood Cell (RBC) Count 3.77 mill/uL (4.70-6.10); White Blood Cell (WBC) Count 14.6 thou/uL (4.8-10.8)
[2021-02-24 07:47] LABS: Band 2 % (5-11); Eosinophils 1 % (0-10); Lymphocytes 9 % (21-51); MDiff Complete? YES; Metamyelocyte 3 % (0-0); Monocytes 4 % (0-10); Myelocyte 1 % (0-0); Neutrophil 80 % (42-75); Platelet Morphology Comment Appears Adequate; Polychromasia SLIGHT = 2-3 cells (100X) (0-2/hpf)
[2021-02-24] MEDS: Pantoprazole 40 MG VIAL IVP SCH ×2 (08:23→19:57)
[2021-02-24] MEDS: Aspirin Chewable 81 MG TAB PO SCH (08:23)
[2021-02-24] MEDS: Ascorbic Acid 500 mg Chewable Tablet PO SCH (08:23)
[2021-02-24] MEDS: Fluticasone Propionate Nasal Spray 16 gm Bottle NASAL SCH (08:24)
[2021-02-24] MEDS: Cholecalciferol 1,000 UNITS (25 MCG) TAB PO SCH (08:24)
[2021-02-24] MEDS ORDERED: Heparin 10,000 UNITS/ 10 ML VIAL ONE (08:53)
[2021-02-24] MEDS ORDERED: cloNIDine 0.1 MG TAB PO SCH ×2 (13:34→21:00)
[2021-02-24] MEDS ORDERED: Amlodipine 10 MG TAB PO SCH (13:45)
[2021-02-24] MEDS: hydrALAZINE 25 MG TAB PO SCH ×2 (14:46→19:48)
[2021-02-24] MEDS: methylPREDNISolone Sod Succ 40 MG VIAL IVP SCH ×2 (14:46→19:58)
[2021-02-24] MEDS ORDERED: cloNIDine 0.2mg/24 Hour PATCH TD SCH (16:00)
[2021-02-24] MEDS: Enoxaparin Sodium 30 MG/0.3 ML SYRINGE SC SCH (19:56)
[2021-02-24] MEDS: cefTRIAXone\\ROCEPHIN 2 GM in Sodium Chloride 0.9% 100 ML IVPB SCH (19:56)
[2021-02-24] MEDS: Lantus 1000 UNITS/10 ML VIAL SC SCH (19:57)
[2021-02-24] MEDS: Nitroglycerin 2% Ointment 1 INCH/1 GM Packet TOP SCH (19:57)
[2021-02-24] MEDS ORDERED: Metoprolol Tartrate 25 MG TAB PO SCH (21:00)
[2021-02-25] MEDS: Nitroglycerin 2% Ointment 1 INCH/1 GM Packet TOP SCH ×3 (05:19→21:09)
[2021-02-25] MEDS: methylPREDNISolone Sod Succ 40 MG VIAL IVP SCH ×3 (05:19→21:09)
[2021-02-25] MEDS: Aspirin Chewable 81 MG TAB PO SCH (08:28)
[2021-02-25] MEDS: Pantoprazole 40 MG VIAL IVP SCH ×2 (08:29→21:09)
[2021-02-25] MEDS: hydrALAZINE 25 MG TAB PO SCH ×3 (08:29→21:09)
[2021-02-25] MEDS: Ascorbic Acid 500 mg Chewable Tablet PO SCH (08:29)
[2021-02-25] MEDS: Calcitriol 0.25 MCG CAP PO SCH (08:30)
[2021-02-25] MEDS: Fluticasone Propionate Nasal Spray 16 gm Bottle NASAL SCH (08:31)
[2021-02-25] MEDS: Amlodipine 10 MG TAB PO SCH (08:31)
[2021-02-25] MEDS ORDERED: Heparin 10,000 UNITS/ 10 ML VIAL ONE (08:46)
[2021-02-25 08:54] LABS: Hemoglobin 12.9 g/dL (14.0-18.0); Mean Corpuscular HGB CONC 33.2 g/dL (32.0-36.0); Mean Corpuscular Hemoglobin 31.2 pg (27.0-31.0); Platelet Count 378 thou/uL (130-400); RBC Distribution Width 12.9 % (11.5-14.5); Red Blood Cell (RBC) Count 4.13 mill/uL (4.70-6.10)
[2021-02-25 09:16] LABS: Anion Gap 18 mmol/L (10-20); BUN (Urea Nitrogen) 80 mg/dL (8.4-25.7); Calc. Creatinine Clearance 30 mL/min (70-130); Calcium 9.4 mg/dL (7.8-10.44); Carbon Dioxide 26 mmol/L (23-31); Chloride 102 mmol/L (98-107); Glucose 169 mg/dL (80-115); Potassium 4.1 mmol/L (3.5-5.1); Sodium 142 mmol/L (136-145)
[2021-02-25 09:27] LABS: Band 7 % (5-11); Eosinophils 1 % (0-10); Lymphocytes 6 % (21-51); MDiff Complete? YES; Metamyelocyte 2 % (0-0); Monocytes 5 % (0-10); Neutrophil 78 % (42-75); Platelet Morphology Comment Appears Adequate; Polychromasia SLIGHT = 2-3 cells (100X) (0-2/hpf); Reactive Lymphocytes 1 % (0-10)
[2021-02-25] MEDS: HumaLOG 300 UNITS/3 ML VIAL SC PRN ×2 (12:00→22:47)
[2021-02-25] MEDS: hydrALAZINE 20 MG/ML VIAL SLOW IVP SCH ×2 (13:48→22:47)
[2021-02-25] MEDS ORDERED: Activase 2 MG VIAL CATH SCH ×2 (14:45→17:30)
[2021-02-25] MEDS ORDERED: Sterile Water 10 ML VIAL IVP SCH ×2 (14:45→17:30)
[2021-02-25] MEDS: Enoxaparin Sodium 30 MG/0.3 ML SYRINGE SC SCH (21:08)
[2021-02-25] MEDS: cefTRIAXone\\ROCEPHIN 2 GM in Sodium Chloride 0.9% 100 ML IVPB SCH (21:08)
[2021-02-25] MEDS: Lantus 1000 UNITS/10 ML VIAL SC SCH (21:08)
[2021-02-25] MEDS: Morphine 2 MG/ML VIAL SLOW IVP PRN (21:10)
[2021-02-26] MEDS: hydrALAZINE 20 MG/ML VIAL SLOW IVP SCH ×3 (05:48→21:45)
[2021-02-26] MEDS: hydrALAZINE 25 MG TAB PO SCH ×3 (05:48→21:45)
[2021-02-26] MEDS: Nitroglycerin 2% Ointment 1 INCH/1 GM Packet TOP SCH ×3 (05:49→21:43)
[2021-02-26] MEDS: methylPREDNISolone Sod Succ 40 MG VIAL IVP SCH (05:49)
[2021-02-26] MEDS: HumaLOG 300 UNITS/3 ML VIAL SC PRN ×3 (05:50→17:18)
[2021-02-26] MEDS: Lorazepam 2 MG/ML VIAL SLOW IVP PRN (06:28)
[2021-02-26] MEDS: Pantoprazole 40 MG VIAL IVP SCH ×2 (09:02→21:44)
[2021-02-26] MEDS ORDERED: Heparin 10,000 UNITS/ 10 ML VIAL ONE (09:55)
[2021-02-26] MEDS ORDERED: Activase 2 MG VIAL CATH SCH (12:00)
[2021-02-26] MEDS: Calcitriol 0.25 MCG CAP PO SCH (12:21)
[2021-02-26] MEDS: Fluticasone Propionate Nasal Spray 16 gm Bottle NASAL SCH (12:21)
[2021-02-26] MEDS: Ascorbic Acid 500 mg Chewable Tablet PO SCH (12:22)
[2021-02-26] MEDS: Aspirin Chewable 81 MG TAB PO SCH (12:22)
[2021-02-26] MEDS: Amlodipine 10 MG TAB PO SCH (12:22)
[2021-02-26] MEDS: Enoxaparin Sodium 30 MG/0.3 ML SYRINGE SC SCH (21:44)
[2021-02-26] MEDS: cefTRIAXone\\ROCEPHIN 2 GM in Sodium Chloride 0.9% 100 ML IVPB SCH (21:44)
[2021-02-26] MEDS: Lantus 1000 UNITS/10 ML VIAL SC SCH (21:44)
[2021-02-27] MEDS: hydrALAZINE 20 MG/ML VIAL SLOW IVP SCH (05:22)
[2021-02-27] MEDS: hydrALAZINE 25 MG TAB PO SCH ×3 (05:22→21:06)
[2021-02-27] MEDS: Nitroglycerin 2% Ointment 1 INCH/1 GM Packet TOP SCH (05:22)
[2021-02-27] MEDS: HumaLOG 300 UNITS/3 ML VIAL SC PRN ×2 (05:23→16:18)
[2021-02-27 08:28] LABS: ALT (SGPT) 11 U/L (8-55); AST (SGOT) 7 U/L (5-34); Albumin 3.2 g/dL (3.4-4.8); Alkaline Phosphatase 75 U/L (40-110); Anion Gap 21 mmol/L (10-20); BUN (Urea Nitrogen) 122 mg/dL (8.4-25.7); Bilirubin, Total 0.4 mg/dL (0.2-1.2); Calc. Creatinine Clearance 21 mL/min (70-130); Calcium 8.9 mg/dL (7.8-10.44); Carbon Dioxide 23 mmol/L (23-31); Chloride 103 mmol/L (98-107); Globulin 2.7 g/dL (2.4-3.5); Glucose 187 mg/dL (80-115); Potassium 4.5 mmol/L (3.5-5.1); Protein, Total 5.9 g/dL (5.8-8.1); Sodium 142 mmol/L (136-145)
[2021-02-27 08:53] LABS: Band 2 % (5-11); Eosinophils 1 % (0-10); Hemoglobin 12.8 g/dL (14.0-18.0); Lymphocytes 5 % (21-51); MDiff Complete? YES; Mean Corpuscular HGB CONC 32.6 g/dL (32.0-36.0); Mean Corpuscular Hemoglobin 30.9 pg (27.0-31.0); Mean Corpuscular Volume 94.9 fL (78.0-98.0); Mean Platelet Volume 7.6 fL (7.4-10.4); Monocytes 2 % (0-10); Neutrophil 90 % (42-75); Platelet Count 229 thou/uL (130-400); RBC Distribution Width 13.5 % (11.5-14.5); Red Blood Cell (RBC) Count 4.15 mill/uL (4.70-6.10); White Blood Cell (WBC) Count 21.4 thou/uL (4.8-10.8)
[2021-02-27] MEDS: Aspirin Chewable 81 MG TAB PO SCH ×2 (09:45→10:02)
[2021-02-27] MEDS: Amlodipine 10 MG TAB PO SCH (09:45)
[2021-02-27] MEDS: Ascorbic Acid 500 mg Chewable Tablet PO SCH ×2 (09:45→10:02)
[2021-02-27] MEDS: methylPREDNISolone Sod Succ 40 MG VIAL IVP SCH (10:01)
[2021-02-27] MEDS: Lantus 1000 UNITS/10 ML VIAL SC SCH ×2 (10:06→21:05)
[2021-02-27] MEDS: Pantoprazole 40 MG VIAL IVP SCH ×2 (10:08→21:05)
[2021-02-27] MEDS: Fluticasone Propionate Nasal Spray 16 gm Bottle NASAL SCH (10:47)
[2021-02-27] MEDS: Calcitriol 0.25 MCG CAP PO SCH (10:47)
[2021-02-27] MEDS ORDERED: Sodium Chloride 0.9% 1,000 ML IV SCH (12:45)
[2021-02-27] MEDS: cefTRIAXone\\ROCEPHIN 2 GM in Sodium Chloride 0.9% 100 ML IVPB SCH (21:04)
[2021-02-27] MEDS: Enoxaparin Sodium 30 MG/0.3 ML SYRINGE SC SCH (21:05)
[2021-02-28] MEDS: hydrALAZINE 25 MG TAB PO SCH ×3 (05:41→20:19)
[2021-02-28 06:28] LABS: Anion Gap 20 mmol/L (10-20); Calc. Creatinine Clearance 19 mL/min (70-130); Calcium 8.4 mg/dL (7.8-10.44); Carbon Dioxide 22 mmol/L (23-31); Chloride 102 mmol/L (98-107); Glucose 169 mg/dL (80-115); Potassium 4.4 mmol/L (3.5-5.1); Sodium 140 mmol/L (136-145)
[2021-02-28 06:39] LABS: BUN (Urea Nitrogen) 127 mg/dL (8.4-25.7)
[2021-02-28] MEDS: methylPREDNISolone Sod Succ 40 MG VIAL IVP SCH (08:46)
[2021-02-28] MEDS: Pantoprazole 40 MG VIAL IVP SCH ×2 (08:47→20:16)
[2021-02-28] MEDS: Amlodipine 10 MG TAB PO SCH (08:48)
[2021-02-28] MEDS: Ascorbic Acid 500 mg Chewable Tablet PO SCH (08:48)
[2021-02-28] MEDS: Calcitriol 0.25 MCG CAP PO SCH (08:49)
[2021-02-28] MEDS: Aspirin Chewable 81 MG TAB PO SCH (08:49)
[2021-02-28] MEDS: Lantus 1000 UNITS/10 ML VIAL SC SCH ×2 (09:24→20:11)
[2021-02-28] MEDS: Fluticasone Propionate Nasal Spray 16 gm Bottle NASAL SCH (10:08)
[2021-02-28] MEDS ORDERED: Heparin 10,000 UNITS/ 10 ML VIAL ONE (11:52)
[2021-02-28] MEDS: HumaLOG 300 UNITS/3 ML VIAL SC PRN ×2 (13:21→15:52)
[2021-02-28] MEDS: Enoxaparin Sodium 30 MG/0.3 ML SYRINGE SC SCH (20:15)
[2021-03-01] MEDS: Guaifenesin DM 100-10/5 ML UDCUP PO PRN (01:16)
[2021-03-01 05:39] LABS: Anion Gap 22 mmol/L (10-20); Calc. Creatinine Clearance 19 mL/min (70-130); Carbon Dioxide 20 mmol/L (23-31); Chloride 101 mmol/L (98-107); Glucose 148 mg/dL (80-115); Potassium 4.6 mmol/L (3.5-5.1); Sodium 138 mmol/L (136-145)
[2021-03-01 05:50] LABS: BUN (Urea Nitrogen) 137 mg/dL (8.4-25.7)
[2021-03-01] MEDS: hydrALAZINE 25 MG TAB PO SCH ×3 (06:33→21:58)
[2021-03-01] MEDS: Aspirin Chewable 81 MG TAB PO SCH (08:30)
[2021-03-01] MEDS: Amlodipine 10 MG TAB PO SCH (08:30)
[2021-03-01] MEDS: Ascorbic Acid 500 mg Chewable Tablet PO SCH (08:30)
[2021-03-01] MEDS: Calcitriol 0.25 MCG CAP PO SCH (08:30)
[2021-03-01] MEDS: methylPREDNISolone Sod Succ 40 MG VIAL IVP SCH (08:31)
[2021-03-01] MEDS: Pantoprazole 40 MG VIAL IVP SCH ×2 (08:35→22:55)
[2021-03-01] MEDS: Lantus 1000 UNITS/10 ML VIAL SC SCH ×2 (09:36→21:50)
[2021-03-01] MEDS: Fluticasone Propionate Nasal Spray 16 gm Bottle NASAL SCH (10:03)
[2021-03-01] MEDS ORDERED: Heparin 10,000 UNITS/ 10 ML VIAL ONE (11:54)
[2021-03-01] MEDS: HumaLOG 300 UNITS/3 ML VIAL SC PRN ×2 (12:18→17:28)
[2021-03-01 14:48] LABS: Band 2 % (5-11); Eosinophils 2 % (0-10); MDiff Complete? YES; Mean Corpuscular HGB CONC 32.3 g/dL (32.0-36.0); Mean Corpuscular Hemoglobin 30.6 pg (27.0-31.0); Mean Corpuscular Volume 94.9 fL (78.0-98.0); Mean Platelet Volume 8.7 fL (7.4-10.4); Monocytes 1 % (0-10); Neutrophil 95 % (42-75); Platelet Count 168 thou/uL (130-400); Platelet Morphology Comment Appears Adequate; Polychromasia SLIGHT = 2-3 cells (100X) (0-2/hpf); RBC Distribution Width 13.4 % (11.5-14.5); Red Blood Cell (RBC) Count 3.93 mill/uL (4.70-6.10); White Blood Cell (WBC) Count 19.6 thou/uL (4.8-10.8)
[2021-03-01] MEDS: Enoxaparin Sodium 30 MG/0.3 ML SYRINGE SC SCH (22:58)
[2021-03-02] MEDS: hydrALAZINE 25 MG TAB PO SCH ×3 (06:31→21:01)
[2021-03-02 07:08] LABS: Chloride 101 mmol/L (98-107)
[2021-03-02 07:09] LABS: Calcium 8.2 mg/dL (7.8-10.44); Potassium 4.1 mmol/L (3.5-5.1); Sodium 139 mmol/L (136-145)
[2021-03-02 07:10] LABS: Glucose 139 mg/dL (80-115)
[2021-03-02 07:11] LABS: Anion Gap 15 mmol/L (10-20); Carbon Dioxide 27 mmol/L (23-31)
[2021-03-02 07:13] LABS: Calc. Creatinine Clearance 29 mL/min (70-130)
[2021-03-02 07:14] LABS: BUN (Urea Nitrogen) 83 mg/dL (8.4-25.7)
[2021-03-02] MEDS: Aspirin Chewable 81 MG TAB PO SCH (08:05)
[2021-03-02] MEDS: Ascorbic Acid 500 mg Chewable Tablet PO SCH (08:05)
[2021-03-02] MEDS: methylPREDNISolone Sod Succ 40 MG VIAL IVP SCH (08:06)
[2021-03-02] MEDS: Calcitriol 0.25 MCG CAP PO SCH (08:06)
[2021-03-02] MEDS: Fluticasone Propionate Nasal Spray 16 gm Bottle NASAL SCH (08:06)
[2021-03-02] MEDS: Pantoprazole 40 MG VIAL IVP SCH ×2 (08:06→20:53)
[2021-03-02] MEDS: Amlodipine 10 MG TAB PO SCH ×3 (08:07→11:43)
[2021-03-02 08:19] LABS: Band 6 % (5-11); Eosinophils 1 % (0-10); Hemoglobin 11.6 g/dL (14.0-18.0); Lymphocytes 8 % (21-51); MDiff Complete? YES; Mean Corpuscular HGB CONC 33.3 g/dL (32.0-36.0); Mean Corpuscular Hemoglobin 31.2 pg (27.0-31.0); Mean Corpuscular Volume 93.7 fL (78.0-98.0); Mean Platelet Volume 8.5 fL (7.4-10.4); Monocytes 5 % (0-10); Neutrophil 80 % (42-75); Platelet Count 136 thou/uL (130-400); Platelet Morphology Comment Appears Adequate; Polychromasia SLIGHT = 2-3 cells (100X) (0-2/hpf); RBC Distribution Width 13.2 % (11.5-14.5)
[2021-03-02] MEDS: HumaLOG 300 UNITS/3 ML VIAL SC PRN ×2 (11:42→17:32)
[2021-03-02] MEDS: Enoxaparin Sodium 30 MG/0.3 ML SYRINGE SC SCH (20:53)
[2021-03-02] MEDS: Lantus 1000 UNITS/10 ML VIAL SC SCH (20:57)
[2021-03-03] MEDS: hydrALAZINE 25 MG TAB PO SCH ×3 (05:52→21:02)
[2021-03-03 05:55] LABS: Anion Gap 16 mmol/L (10-20); BUN (Urea Nitrogen) 106 mg/dL (8.4-25.7); Calc. Creatinine Clearance 26 mL/min (70-130); Calcium 8.4 mg/dL (7.8-10.44); Carbon Dioxide 26 mmol/L (23-31); Chloride 102 mmol/L (98-107); Glucose 147 mg/dL (80-115); Potassium 3.9 mmol/L (3.5-5.1); Sodium 140 mmol/L (136-145)
[2021-03-03] MEDS: Amlodipine 10 MG TAB PO SCH (08:54)
[2021-03-03] MEDS: Aspirin Chewable 81 MG TAB PO SCH (08:54)
[2021-03-03] MEDS: Fluticasone Propionate Nasal Spray 16 gm Bottle NASAL SCH (08:54)
[2021-03-03] MEDS: Ascorbic Acid 500 mg Chewable Tablet PO SCH (08:54)
[2021-03-03] MEDS: Calcitriol 0.25 MCG CAP PO SCH (08:54)
[2021-03-03] MEDS: Pantoprazole 40 MG VIAL IVP SCH ×2 (08:55→20:40)
[2021-03-03] MEDS: methylPREDNISolone Sod Succ 40 MG VIAL IVP SCH (08:55)
[2021-03-03] MEDS ORDERED: cloNIDine 0.2mg/24 Hour PATCH TD SCH (09:00)
[2021-03-03] MEDS ORDERED: Heparin 10,000 UNITS/ 10 ML VIAL ONE (10:34)
[2021-03-03] MEDS: HumaLOG 300 UNITS/3 ML VIAL SC PRN ×2 (12:19→17:40)
[2021-03-03] MEDS ORDERED: Activase 2 MG VIAL CATH SCH (20:00)
[2021-03-03] MEDS ORDERED: Sterile Water 10 ML VIAL IVP SCH (20:00)
[2021-03-03] MEDS: Enoxaparin Sodium 30 MG/0.3 ML SYRINGE SC SCH (20:46)
[2021-03-03] MEDS: Lantus 1000 UNITS/10 ML VIAL SC SCH (21:49)
[2021-03-04] MEDS: hydrALAZINE 25 MG TAB PO SCH ×3 (06:03→21:46)
[2021-03-04 06:48] LABS: #Basophils 0.1 thou/uL (0.0-0.2); #Eosinphils 0.6 thou/uL (0.0-0.7); #Lymphocytes 0.9 thou/uL (1.20-3.40); #Monocytes 1.4 thou/uL (0.11-0.59); #Neutrophils 15.6 thou/uL (1.40-6.50); %Basophils 0.4 % (0.0-1.0); %Lymphocytes 5.1 % (21.0-51.0); %Monocytes 7.6 % (0.0-10.0); %Neutrophils 83.9 % (42.0-75.0); Hemoglobin 11.6 g/dL (14.0-18.0); Mean Corpuscular HGB CONC 33.6 g/dL (32.0-36.0); Mean Corpuscular Hemoglobin 31.9 pg (27.0-31.0); Mean Corpuscular Volume 94.7 fL (78.0-98.0); Mean Platelet Volume 8.5 fL (7.4-10.4); Platelet Count 140 thou/uL (130-400); RBC Distribution Width 13.6 % (11.5-14.5); Red Blood Cell (RBC) Count 3.63 mill/uL (4.70-6.10); White Blood Cell (WBC) Count 18.6 thou/uL (4.8-10.8)
[2021-03-04 07:44] LABS: Anion Gap 16 mmol/L (10-20); BUN (Urea Nitrogen) 89 mg/dL (8.4-25.7); Calc. Creatinine Clearance 29 mL/min (70-130); Carbon Dioxide 26 mmol/L (23-31); Chloride 102 mmol/L (98-107); Potassium 4.2 mmol/L (3.5-5.1); Sodium 140 mmol/L (136-145)
[2021-03-04 07:45] LABS: Calcium 8.5 mg/dL (7.8-10.44); Glucose 141 mg/dL (80-115)
[2021-03-04] MEDS: methylPREDNISolone Sod Succ 40 MG VIAL IVP SCH (07:49)
[2021-03-04] MEDS: Fluticasone Propionate Nasal Spray 16 gm Bottle NASAL SCH (07:50)
[2021-03-04] MEDS: Ascorbic Acid 500 mg Chewable Tablet PO SCH (07:50)
[2021-03-04] MEDS: Aspirin Chewable 81 MG TAB PO SCH (07:50)
[2021-03-04] MEDS: Pantoprazole 40 MG VIAL IVP SCH ×2 (07:50→20:54)
[2021-03-04] MEDS: Calcitriol 0.25 MCG CAP PO SCH (07:50)
[2021-03-04] MEDS: Amlodipine 10 MG TAB PO SCH (07:50)
[2021-03-04] MEDS ORDERED: Heparin 10,000 UNITS/ 10 ML VIAL ONE (10:32)
[2021-03-04] MEDS ORDERED: Polyethylene Glycol 3350 17 GM Packet PO PRN (12:26)
[2021-03-04 16:19] LABS: Actual Bicarbonate (HCO3a) 25.9 mEq/L (22-28); Base Excess (BEa) 2.2 mEq/L (-2.0 to +3.0); CO2 Tension 37.1 mmHg (35.0-45.0); Calcium, Ionized (arterial) 1.13 mmol/L (1.12-1.30); Carboxyhemoglobin (COHb) 0.8 gm% (0.0-3.0); Potassium - ABG Lab 4.55 mmol/L (3.70-5.30); pH, Arterial 7.46 (7.35-7.45)
[2021-03-04 16:24] LABS: O2 Tension (PaO2), arterial 52.9 mmHg (> 80.0); Puncture Site RRA
[2021-03-04 16:25] LABS: ALV-art Gradient 613.725 mmHg (0-20)
[2021-03-04] MEDS: Enoxaparin Sodium 30 MG/0.3 ML SYRINGE SC SCH (20:55)
[2021-03-04] MEDS: Lantus 1000 UNITS/10 ML VIAL SC SCH (21:47)
[2021-03-05 06:05] LABS: ALT (SGPT) 13 U/L (8-55); AST (SGOT) 12 U/L (5-34); Alkaline Phosphatase 81 U/L (40-110); Anion Gap 17 mmol/L (10-20); BUN (Urea Nitrogen) 80 mg/dL (8.4-25.7); Bilirubin, Total 0.5 mg/dL (0.2-1.2); Calc. Creatinine Clearance 0 mL/min (70-130); Calcium 8.4 mg/dL (7.8-10.44); Carbon Dioxide 27 mmol/L (23-31); Chloride 103 mmol/L (98-107); Globulin 2.3 g/dL (2.4-3.5); Glucose 150 mg/dL (80-115); Potassium 4.4 mmol/L (3.5-5.1); Protein, Total 5.3 g/dL (5.8-8.1); Sodium 143 mmol/L (136-145)
[2021-03-05] MEDS: hydrALAZINE 25 MG TAB PO SCH ×3 (06:11→22:01)
[2021-03-05 06:43] LABS: #Eosinphils 0.6 thou/uL (0.0-0.7); #Lymphocytes 1.1 thou/uL (1.20-3.40); #Monocytes 1.2 thou/uL (0.11-0.59); #Neutrophils 13.4 thou/uL (1.40-6.50); %Basophils 0.1 % (0.0-1.0); %Eosinophils 3.8 % (0.0-10.0); %Lymphocytes 6.5 % (21.0-51.0); %Monocytes 7.4 % (0.0-10.0); %Neutrophils 82.1 % (42.0-75.0); Eosinophils 2 % (0-10); Hemoglobin 11.4 g/dL (14.0-18.0); Lymphocytes 10 % (21-51); MDiff Complete? YES; Mean Corpuscular HGB CONC 31.9 g/dL (32.0-36.0); Mean Corpuscular Hemoglobin 30.4 pg (27.0-31.0); Mean Corpuscular Volume 95.5 fL (78.0-98.0); Mean Platelet Volume 8.3 fL (7.4-10.4); Monocytes 10 % (0-10); Myelocyte 1 % (0-0); Neutrophil 77 % (42-75); Platelet Count 104 thou/uL (130-400); Platelet Morphology Comment Appears Decreased; RBC Distribution Width 13.9 % (11.5-14.5); RBC Morphology Normal; Red Blood Cell (RBC) Count 3.76 mill/uL (4.70-6.10); White Blood Cell (WBC) Count 16.3 thou/uL (4.8-10.8)
[2021-03-05] MEDS: methylPREDNISolone Sod Succ 40 MG VIAL IVP SCH (09:37)
[2021-03-05] MEDS: Calcitriol 0.25 MCG CAP PO SCH (09:37)
[2021-03-05] MEDS: Aspirin Chewable 81 MG TAB PO SCH (09:37)
[2021-03-05] MEDS: Polyethylene Glycol 3350 17 GM Packet PO SCH (09:37)
[2021-03-05] MEDS: Ascorbic Acid 500 mg Chewable Tablet PO SCH (09:37)
[2021-03-05] MEDS: Fluticasone Propionate Nasal Spray 16 gm Bottle NASAL SCH (09:43)
[2021-03-05] MEDS: Pantoprazole 40 MG VIAL IVP SCH ×2 (09:43→20:09)
[2021-03-05] MEDS: HumaLOG 300 UNITS/3 ML VIAL SC PRN ×2 (18:43→21:56)
[2021-03-05] MEDS: Enoxaparin Sodium 30 MG/0.3 ML SYRINGE SC SCH (20:09)
[2021-03-05] MEDS: Lantus 1000 UNITS/10 ML VIAL SC SCH (21:26)
[2021-03-06 12:23] LABS: Hemoglobin 12.5 g/dL (14.0-18.0); Mean Corpuscular HGB CONC 32.2 g/dL (32.0-36.0); Mean Corpuscular Hemoglobin 30.8 pg (27.0-31.0); Mean Corpuscular Volume 95.7 fL (78.0-98.0); Mean Platelet Volume 9.4 fL (7.4-10.4); Platelet Count 73 thou/uL (130-400); RBC Distribution Width 14.4 % (11.5-14.5); Red Blood Cell (RBC) Count 4.05 mill/uL (4.70-6.10); White Blood Cell (WBC) Count 19.9 thou/uL (4.8-10.8)
[2021-03-06 12:41] LABS: ALT (SGPT) 15 U/L (8-55); AST (SGOT) 19 U/L (5-34); Albumin 3.3 g/dL (3.4-4.8); Alkaline Phosphatase 116 U/L (40-110); Anion Gap 18 mmol/L (10-20); BUN (Urea Nitrogen) 56 mg/dL (8.4-25.7); Bilirubin, Total 0.6 mg/dL (0.2-1.2); Calc. Creatinine Clearance 41 mL/min (70-130); Calcium 8.7 mg/dL (7.8-10.44); Carbon Dioxide 27 mmol/L (23-31); Chloride 100 mmol/L (98-107); Globulin 2.9 g/dL (2.4-3.5); Glucose 130 mg/dL (80-115); Protein, Total 6.2 g/dL (5.8-8.1); Sodium 141 mmol/L (136-145)
[2021-03-06] MEDS: hydrALAZINE 25 MG TAB PO SCH ×2 (13:16→22:27)
[2021-03-06] MEDS: Pantoprazole 40 MG VIAL IVP SCH ×2 (13:17→21:43)
[2021-03-06] MEDS: methylPREDNISolone Sod Succ 40 MG VIAL IVP SCH (13:17)
[2021-03-06] MEDS: Calcitriol 0.25 MCG CAP PO SCH (13:19)
[2021-03-06] MEDS: Ascorbic Acid 500 mg Chewable Tablet PO SCH (13:19)
[2021-03-06] MEDS: Aspirin Chewable 81 MG TAB PO SCH (13:20)
[2021-03-06] MEDS: Polyethylene Glycol 3350 17 GM Packet PO SCH (13:20)
[2021-03-06 13:22] LABS: Eosinophils 3 % (0-10); Lymphocytes 5 % (21-51); MDiff Complete? YES; Monocytes 3 % (0-10); Neutrophil 89 % (42-75); Platelet Morphology Comment Appears Decreased; Polychromasia SLIGHT = 2-3 cells (100X) (0-2/hpf)
[2021-03-06] MEDS: Fluticasone Propionate Nasal Spray 16 gm Bottle NASAL SCH (13:22)
[2021-03-06] MEDS ORDERED: Heparin 10,000 UNITS/ 10 ML VIAL ONE (14:48)
[2021-03-06] MEDS: HumaLOG 300 UNITS/3 ML VIAL SC PRN (17:07)
[2021-03-06] MEDS: Azithromycin 500 MG in Sodium Chloride 0.9% 250 ML 250 ML IVPB SCH (19:44)
[2021-03-06] MEDS: Dexamethasone Sod Phosphate 6 MG in Sodium Chloride 0.9% 50 ML IVPB SCH (21:06)
[2021-03-06] MEDS: Lantus 1000 UNITS/10 ML VIAL SC SCH (21:56)
[2021-03-06] MEDS: cefTRIAXone\\ROCEPHIN 1 GM in Sodium Chloride 0.9% 100 ML IVPB SCH (22:05)
[2021-03-06] MEDS: Enoxaparin Sodium 30 MG/0.3 ML SYRINGE SC SCH (22:24)
[2021-03-07 01:14] LABS: Legionella Urinary Ag Negative (Negative); Strep pneumo Urine Ag NEGATIVE (NEGATIVE)
[2021-03-07 06:08] LABS: #Lymphocytes 0.6 thou/uL (1.20-3.40); #Monocytes 0.4 thou/uL (0.11-0.59); %Basophils 0.1 % (0.0-1.0); %Eosinophils 0.2 % (0.0-10.0); %Lymphocytes 4.2 % (21.0-51.0); %Neutrophils 92.5 % (42.0-75.0); Mean Corpuscular HGB CONC 32.2 g/dL (32.0-36.0); Mean Corpuscular Hemoglobin 30.6 pg (27.0-31.0); Mean Platelet Volume 8.5 fL (7.4-10.4); Platelet Count 82 thou/uL (130-400); RBC Distribution Width 14.3 % (11.5-14.5); White Blood Cell (WBC) Count 14.1 thou/uL (4.8-10.8)
[2021-03-07 06:25] LABS: ALT (SGPT) 14 U/L (8-55); AST (SGOT) 13 U/L (5-34); Alkaline Phosphatase 97 U/L (40-110); Anion Gap 17 mmol/L (10-20); BUN (Urea Nitrogen) 72 mg/dL (8.4-25.7); Bilirubin, Total 0.5 mg/dL (0.2-1.2); Calc. Creatinine Clearance 28 mL/min (70-130); Calcium 8.4 mg/dL (7.8-10.44); Carbon Dioxide 26 mmol/L (23-31); Chloride 101 mmol/L (98-107); Globulin 2.6 g/dL (2.4-3.5); Glucose 171 mg/dL (80-115); Potassium 5.2 mmol/L (3.5-5.1); Protein, Total 5.6 g/dL (5.8-8.1); Sodium 139 mmol/L (136-145)
[2021-03-07] MEDS: hydrALAZINE 25 MG TAB PO SCH ×4 (06:32→22:00)
[2021-03-07] MEDS: Dexamethasone Sod Phosphate 6 MG in Sodium Chloride 0.9% 50 ML IVPB SCH (08:52)
[2021-03-07] MEDS: Pantoprazole 40 MG VIAL IVP SCH ×2 (08:52→20:04)
[2021-03-07] MEDS: Polyethylene Glycol 3350 17 GM Packet PO SCH (08:53)
[2021-03-07] MEDS: Ascorbic Acid 500 mg Chewable Tablet PO SCH (08:53)
[2021-03-07] MEDS: Aspirin Chewable 81 MG TAB PO SCH (08:53)
[2021-03-07] MEDS: Calcitriol 0.25 MCG CAP PO SCH (08:53)
[2021-03-07] MEDS: Fluticasone Propionate Nasal Spray 16 gm Bottle NASAL SCH (09:04)
[2021-03-07] MEDS: HumaLOG 300 UNITS/3 ML VIAL SC PRN ×2 (12:25→16:09)
[2021-03-07] MEDS: cefTRIAXone\\ROCEPHIN 1 GM in Sodium Chloride 0.9% 100 ML IVPB SCH (18:02)
[2021-03-07] MEDS: Azithromycin 500 MG in Sodium Chloride 0.9% 250 ML 250 ML IVPB SCH (18:35)
[2021-03-07] MEDS: Enoxaparin Sodium 30 MG/0.3 ML SYRINGE SC SCH (20:05)
[2021-03-07] MEDS: Lantus 1000 UNITS/10 ML VIAL SC SCH (20:06)
[2021-03-08 06:42] LABS: #Eosinphils 0.8 thou/uL (0.0-0.7); #Lymphocytes 0.8 thou/uL (1.20-3.40); #Monocytes 0.9 thou/uL (0.11-0.59); #Neutrophils 13.5 thou/uL (1.40-6.50); %Basophils 0.2 % (0.0-1.0); %Eosinophils 4.8 % (0.0-10.0); %Lymphocytes 4.7 % (21.0-51.0); %Monocytes 5.6 % (0.0-10.0); %Neutrophils 84.6 % (42.0-75.0); Hemoglobin 10.9 g/dL (14.0-18.0); Mean Corpuscular HGB CONC 31.8 g/dL (32.0-36.0); Mean Corpuscular Hemoglobin 30.4 pg (27.0-31.0); Mean Corpuscular Volume 95.4 fL (78.0-98.0); Mean Platelet Volume 8.2 fL (7.4-10.4); Platelet Count 95 thou/uL (130-400); RBC Distribution Width 14.4 % (11.5-14.5)
[2021-03-08] MEDS: hydrALAZINE 25 MG TAB PO SCH ×3 (07:01→20:10)
[2021-03-08 07:03] LABS: ALT (SGPT) 15 U/L (8-55); AST (SGOT) 14 U/L (5-34); Alkaline Phosphatase 96 U/L (40-110); Anion Gap 18 mmol/L (10-20); BUN (Urea Nitrogen) 95 mg/dL (8.4-25.7); Bilirubin, Total 0.4 mg/dL (0.2-1.2); Calc. Creatinine Clearance 24 mL/min (70-130); Calcium 8.7 mg/dL (7.8-10.44); Carbon Dioxide 25 mmol/L (23-31); Chloride 101 mmol/L (98-107); Globulin 2.3 g/dL (2.4-3.5); Glucose 116 mg/dL (80-115); Potassium 4.8 mmol/L (3.5-5.1); Protein, Total 5.3 g/dL (5.8-8.1); Sodium 139 mmol/L (136-145)
[2021-03-08] MEDS: Polyethylene Glycol 3350 17 GM Packet PO SCH (08:03)
[2021-03-08] MEDS: Ascorbic Acid 500 mg Chewable Tablet PO SCH (08:04)
[2021-03-08] MEDS: Calcitriol 0.25 MCG CAP PO SCH (08:04)
[2021-03-08] MEDS: Aspirin Chewable 81 MG TAB PO SCH (08:04)
[2021-03-08] MEDS: Pantoprazole 40 MG VIAL IVP SCH ×2 (08:05→20:10)
[2021-03-08] MEDS: Fluticasone Propionate Nasal Spray 16 gm Bottle NASAL SCH (08:20)
[2021-03-08] MEDS ORDERED: Dexamethasone 10 MG in Sodium Chloride 0.9% 50 ML IVPB SCH (09:00)
[2021-03-08] MEDS ORDERED: Dexamethasone 4 mg/ml Vial SLOW IVP SCH (09:00)
[2021-03-08 13:14] LABS: Phosphorus 7.4 mg/dL (2.3-4.7)
[2021-03-08 13:16] LABS: Magnesium 2.4 mg/dL (1.6-2.6)
[2021-03-08] MEDS: Azithromycin 500 MG in Sodium Chloride 0.9% 250 ML 250 ML IVPB SCH (17:48)
[2021-03-08] MEDS: HumaLOG 300 UNITS/3 ML VIAL SC PRN (18:02)
[2021-03-08] MEDS: cefTRIAXone\\ROCEPHIN 1 GM in Sodium Chloride 0.9% 100 ML IVPB SCH (20:09)
[2021-03-08] MEDS: Enoxaparin Sodium 30 MG/0.3 ML SYRINGE SC SCH (20:09)
[2021-03-08] MEDS: Lantus 1000 UNITS/10 ML VIAL SC SCH (20:09)
[2021-03-09] MEDS: hydrALAZINE 25 MG TAB PO SCH ×3 (05:10→21:08)
[2021-03-09 05:38] LABS: #Eosinphils 0.6 thou/uL (0.0-0.7); #Lymphocytes 0.9 thou/uL (1.20-3.40); #Neutrophils 14.2 thou/uL (1.40-6.50); %Eosinophils 3.4 % (0.0-10.0); %Lymphocytes 5.3 % (21.0-51.0); %Neutrophils 85.2 % (42.0-75.0); Mean Corpuscular HGB CONC 32.4 g/dL (32.0-36.0); Mean Corpuscular Hemoglobin 30.7 pg (27.0-31.0); Mean Corpuscular Volume 94.8 fL (78.0-98.0); Mean Platelet Volume 7.7 fL (7.4-10.4); Platelet Count 116 thou/uL (130-400); RBC Distribution Width 14.2 % (11.5-14.5); Red Blood Cell (RBC) Count 3.58 mill/uL (4.70-6.10); White Blood Cell (WBC) Count 16.6 thou/uL (4.8-10.8)
[2021-03-09 06:00] LABS: Magnesium 2.4 mg/dL (1.6-2.6); Phosphorus 7.8 mg/dL (2.3-4.7)
[2021-03-09 06:05] LABS: ALT (SGPT) 15 U/L (8-55); AST (SGOT) 14 U/L (5-34); Albumin 2.9 g/dL (3.4-4.8); Alkaline Phosphatase 105 U/L (40-110); Anion Gap 20 mmol/L (10-20); BUN (Urea Nitrogen) 111 mg/dL (8.4-25.7); Bilirubin, Total 0.4 mg/dL (0.2-1.2); Calc. Creatinine Clearance 24 mL/min (70-130); Calcium 8.5 mg/dL (7.8-10.44); Carbon Dioxide 22 mmol/L (23-31); Chloride 100 mmol/L (98-107); Globulin 2.5 g/dL (2.4-3.5); Glucose 105 mg/dL (80-115); Potassium 4.8 mmol/L (3.5-5.1); Protein, Total 5.4 g/dL (5.8-8.1); Sodium 137 mmol/L (136-145)
[2021-03-09 07:06] LABS: Anion Gap 21 mmol/L (10-20); BUN (Urea Nitrogen) 110 mg/dL (8.4-25.7); Calc. Creatinine Clearance 24 mL/min (70-130); Calcium 8.1 mg/dL (7.8-10.44); Carbon Dioxide 23 mmol/L (23-31); Chloride 101 mmol/L (98-107); Glucose 106 mg/dL (80-115); Potassium 4.7 mmol/L (3.5-5.1); Sodium 140 mmol/L (136-145)
[2021-03-09] MEDS: Ascorbic Acid 500 mg Chewable Tablet PO SCH (08:10)
[2021-03-09] MEDS: Calcitriol 0.25 MCG CAP PO SCH (08:10)
[2021-03-09] MEDS: Aspirin Chewable 81 MG TAB PO SCH (08:11)
[2021-03-09] MEDS: Pantoprazole 40 MG VIAL IVP SCH ×2 (08:11→21:06)
[2021-03-09] MEDS: Polyethylene Glycol 3350 17 GM Packet PO SCH (08:11)
[2021-03-09] MEDS: Dexamethasone 4 mg/ml Vial SLOW IVP SCH (08:11)
[2021-03-09] MEDS: Fluticasone Propionate Nasal Spray 16 gm Bottle NASAL SCH (08:24)
[2021-03-09] MEDS ORDERED: Heparin 10,000 UNITS/ 10 ML VIAL ONE ×2 (08:58→10:30)
[2021-03-09] MEDS ORDERED: MULTIVITAMINS IV SCH (14:00)
[2021-03-09] MEDS ORDERED: SODIUM ACETATE IV SCH (14:00)
[2021-03-09] MEDS ORDERED: SODIUM CHLORIDE IV SCH (14:00)
[2021-03-09] MEDS ORDERED: [UNRECOGNIZED DRUG - OTHER] IV SCH (14:00)
[2021-03-09] MEDS: Azithromycin 500 MG in Sodium Chloride 0.9% 250 ML 250 ML IVPB SCH (15:33)
[2021-03-09] MEDS: HumaLOG 300 UNITS/3 ML VIAL SC PRN (17:01)
[2021-03-09] MEDS: cefTRIAXone\\ROCEPHIN 1 GM in Sodium Chloride 0.9% 100 ML IVPB SCH (18:07)
[2021-03-09] MEDS: Lantus 1000 UNITS/10 ML VIAL SC SCH (21:07)
[2021-03-09] MEDS: Enoxaparin Sodium 30 MG/0.3 ML SYRINGE SC SCH (21:08)
[2021-03-10] MEDS: hydrALAZINE 25 MG TAB PO SCH ×3 (06:09→22:09)
[2021-03-10] MEDS: HumaLOG 300 UNITS/3 ML VIAL SC PRN ×4 (06:10→22:10)
[2021-03-10] MEDS: Dexamethasone 4 mg/ml Vial SLOW IVP SCH (08:43)
[2021-03-10] MEDS: Aspirin Chewable 81 MG TAB PO SCH (08:43)
[2021-03-10] MEDS: Ascorbic Acid 500 mg Chewable Tablet PO SCH (08:43)
[2021-03-10] MEDS: Calcitriol 0.25 MCG CAP PO SCH (08:43)
[2021-03-10] MEDS: Fluticasone Propionate Nasal Spray 16 gm Bottle NASAL SCH (08:44)
[2021-03-10] MEDS: Pantoprazole 40 MG VIAL IVP SCH ×2 (08:44→22:10)
[2021-03-10] MEDS: Polyethylene Glycol 3350 17 GM Packet PO SCH ×2 (08:44→08:58)
[2021-03-10 10:10] LABS: #Eosinphils 0.7 thou/uL (0.0-0.7); #Lymphocytes 0.6 thou/uL (1.20-3.40); #Monocytes 0.7 thou/uL (0.11-0.59); #Neutrophils 12.4 thou/uL (1.40-6.50); %Basophils 0.1 % (0.0-1.0); %Eosinophils 4.8 % (0.0-10.0); %Lymphocytes 3.9 % (21.0-51.0); %Neutrophils 86.1 % (42.0-75.0); Hemoglobin 10.7 g/dL (14.0-18.0); Mean Corpuscular HGB CONC 32.7 g/dL (32.0-36.0); Mean Corpuscular Hemoglobin 31.6 pg (27.0-31.0); Mean Corpuscular Volume 96.6 fL (78.0-98.0); Mean Platelet Volume 8.7 fL (7.4-10.4); Platelet Count 70 thou/uL (130-400); Platelet Morphology Comment Appears Decreased; RBC Distribution Width 14.3 % (11.5-14.5); RBC Morphology Normal; Red Blood Cell (RBC) Count 3.38 mill/uL (4.70-6.10); White Blood Cell (WBC) Count 14.4 thou/uL (4.8-10.8)
[2021-03-10 10:17] LABS: ALT (SGPT) 12 U/L (8-55); AST (SGOT) 13 U/L (5-34); Albumin 2.8 g/dL (3.4-4.8); Alkaline Phosphatase 130 U/L (40-110); Anion Gap 15 mmol/L (10-20); BUN (Urea Nitrogen) 74 mg/dL (8.4-25.7); Bilirubin, Total 0.5 mg/dL (0.2-1.2); Calc. Creatinine Clearance 32 mL/min (70-130); Calcium 8.4 mg/dL (7.8-10.44); Carbon Dioxide 28 mmol/L (23-31); Chloride 102 mmol/L (98-107); Globulin 2.5 g/dL (2.4-3.5); Glucose 176 mg/dL (80-115); Magnesium 2.2 mg/dL (1.6-2.6); Protein, Total 5.3 g/dL (5.8-8.1); Sodium 141 mmol/L (136-145)
[2021-03-10 10:46] LABS: Phosphorus 5.2 mg/dL (2.3-4.7)
[2021-03-10 11:36] VITALS: BMI 35.2
[2021-03-10] MEDS ORDERED: SODIUM ACETATE IV SCH (14:00)
[2021-03-10] MEDS ORDERED: [UNRECOGNIZED DRUG - OTHER] IV SCH (14:00)
[2021-03-10] MEDS ORDERED: FAT EMULSION IV SCH (14:00)
[2021-03-10] MEDS ORDERED: SODIUM CHLORIDE IV SCH (14:00)
[2021-03-10] MEDS: Azithromycin 500 MG in Sodium Chloride 0.9% 250 ML 250 ML IVPB SCH (17:24)
[2021-03-10] MEDS: cefTRIAXone\\ROCEPHIN 1 GM in Sodium Chloride 0.9% 100 ML IVPB SCH (18:37)
[2021-03-10] MEDS: Lantus 1000 UNITS/10 ML VIAL SC SCH (22:10)
[2021-03-11] MEDS ORDERED: Albuterol 200 PUFF (6.7GM INHALER) INH SCH (02:30)
[2021-03-11] MEDS ORDERED: Albuterol Sulfate 1.25 MG/3 ML NEB NEB SCH (02:30)
[2021-03-11] MEDS ORDERED: Morphine 2 MG/ML VIAL SLOW IVP SCH (02:45)
[2021-03-11] MEDS: hydrALAZINE 25 MG TAB PO SCH (06:42)
[2021-03-11] MEDS: HumaLOG 300 UNITS/3 ML VIAL SC PRN (07:19)
[2021-03-11 07:47] VITALS: BP 126/68; TEMP 97.7
[2021-03-11] MEDS ORDERED: Morphine 2 MG/ML VIAL SLOW IVP PRN ×2 (08:09→13:45)
[2021-03-11] MEDS: Dexamethasone 4 mg/ml Vial SLOW IVP SCH (09:37)
[2021-03-11] MEDS: Calcitriol 0.25 MCG CAP PO SCH (09:39)
[2021-03-11] MEDS: Aspirin Chewable 81 MG TAB PO SCH (09:39)
[2021-03-11] MEDS: Ascorbic Acid 500 mg Chewable Tablet PO SCH (09:39)
[2021-03-11] MEDS: Fluticasone Propionate Nasal Spray 16 gm Bottle NASAL SCH (09:39)
[2021-03-11] MEDS: Pantoprazole 40 MG VIAL IVP SCH (09:40)
[2021-03-11] MEDS: Polyethylene Glycol 3350 17 GM Packet PO SCH (09:40)
[2021-03-11] MEDS ORDERED: Morphine 4 MG/ML VIAL SLOW IVP PRN (13:47)
[2021-03-11] MEDS ORDERED: Lantus 1000 UNITS/10 ML VIAL SC SCH (21:00)
== END 2021-03-11 13:37 | disposition hospice, inpatient (51) | DRG 177 ==
LOC: ERS 11:57 → ERHOLD 14:51 → CCU 17:39 → T4-A 02-19 22:21
PROVIDERS: ADMIT Internal Medicine; ATTEND Family Medicine
PROC: 8E0ZXY6 Isolation (ICD-10-PCS; principal; 2021-02-17)
PROC: 3E0333Z Introduction of Anti-inflammatory into Peripheral Vein, Percutaneous Approach (ICD-10-PCS; 2021-02-17)
PROC: 3E033XZ Introduction of Vasopressor into Peripheral Vein, Percutaneous Approach (ICD-10-PCS; 2021-02-17)
PROC: XW033H5 Introduction of Tocilizumab into Peripheral Vein, Percutaneous Approach, New Technology Group 5 (ICD-10-PCS; 2021-02-17)
PROC: 02HV33Z Insertion of Infusion Device into Superior Vena Cava, Percutaneous Approach (ICD-10-PCS; 2021-02-17)
PROC: 05JY3ZZ Inspection of Upper Vein, Percutaneous Approach (ICD-10-PCS; 2021-02-17)
PROC: 5A09557 Assistance with Respiratory Ventilation, Greater than 96 Consecutive Hours, Continuous Positive Airway Pressure (ICD-10-PCS; 2021-02-18)
PROC: 06HY33Z Insertion of Infusion Device into Lower Vein, Percutaneous Approach (ICD-10-PCS; 2021-02-21)
PROC: 5A1D70Z Performance of Urinary Filtration, Intermittent, Less than 6 Hours Per Day (ICD-10-PCS; 2021-02-21)
PROC: 06HY33Z Insertion of Infusion Device into Lower Vein, Percutaneous Approach (ICD-10-PCS; 2021-03-01)
PROC: 06HY33Z Insertion of Infusion Device into Lower Vein, Percutaneous Approach (ICD-10-PCS; 2021-03-01)
PROC: 06PY33Z Removal of Infusion Device from Lower Vein, Percutaneous Approach (ICD-10-PCS; 2021-03-01)
PROC: 3E0336Z Introduction of Nutritional Substance into Peripheral Vein, Percutaneous Approach (ICD-10-PCS; 2021-03-08)
DX: U07.1 COVID-19 (principal); J12.82 Pneumonia due to coronavirus disease 2019; J96.01 Acute respiratory failure with hypoxia; I21.A1 Myocardial infarction type 2; I50.33 Acute on chronic diastolic (congestive) heart failure; N18.6 End stage renal disease; N17.0 Acute kidney failure with tubular necrosis; I13.2 Hypertensive heart and chronic kidney disease with heart failure and with stage 5 chronic kidney disease, or end stage renal disease; E44.0 Moderate protein-calorie malnutrition; T82.524A Displacement of infusion catheter, initial encounter; T82.598A Other mechanical complication of other cardiac and vascular devices and implants, initial encounter; Z66 Do not resuscitate; R79.89 Other specified abnormal findings of blood chemistry; E66.01 Morbid (severe) obesity due to excess calories; I95.9 Hypotension, unspecified; R00.1 Bradycardia, unspecified; E78.5 Hyperlipidemia, unspecified; E78.00 Pure hypercholesterolemia, unspecified; E11.22 Type 2 diabetes mellitus with diabetic chronic kidney disease; E11.40 Type 2 diabetes mellitus with diabetic neuropathy, unspecified; M19.90 Unspecified osteoarthritis, unspecified site; F32.9 Major depressive disorder, single episode, unspecified; Z53.20 Procedure and treatment not carried out because of patient's decision for unspecified reasons; D63.1 Anemia in chronic kidney disease; R62.7 Adult failure to thrive; Y84.8 Other medical procedures as the cause of abnormal reaction of the patient, or of later complication, without mention of misadventure at the time of the procedure; Z79.82 Long term (current) use of aspirin; Z79.51 Long term (current) use of inhaled steroids; Z79.899 Other long term (current) drug therapy; Z68.35 Body mass index [BMI] 35.0-35.9, adult; Z87.891 Personal history of nicotine dependence; Z87.442 Personal history of urinary calculi; Z99.2 Dependence on renal dialysis
CPT/HCPCS: 0240U; 36415; 36416; 36600; 71045; 74018; 80048; 80053; 80069; 81001; 82553; 82570; 82728; 82805; 83520; 83605; 83735; 83880; 84100; 84145; 84300; 84484; 85014; 85018; 85025; 85049; 85379; 85610; 85652; 85730; 86038; 86140; 86225; 86256; 87040; 87340; 87449; 87899; 90935; 93005; 94640; 94660; 96365; 96366; 96367; 96376; C9113; G0257; J0360; J0456; J0461; J0696; J1100; J1265; J1642; J1644; J1650; J1815; J1940; J1956; J2060; J2270; J2405; J2920; J2930; J2997; J3262; J3411; J3490; J7050; P9047

== ENCOUNTER 2021-03-11 13:45 | Inpatient (IN) | payer OTHER ==
[2021-03-11] MEDS ORDERED: Senokot 8.6 MG TAB PO PRN (15:00)
[2021-03-11] MEDS ORDERED: Hyoscyamine Sulfate SL 0.125 mg Tablet SL PRN (15:00)
[2021-03-11] MEDS ORDERED: Zolpidem Tartrate 5 MG TAB PO PRN (15:00)
[2021-03-11] MEDS ORDERED: Acetaminophen 650 MG Suppository PR PRN (15:00)
[2021-03-11] MEDS ORDERED: Morphine 10 MG/0.5 ML ORAL SYRINGE SL PRN (15:00)
[2021-03-11] MEDS ORDERED: diphenhydrAMINE 50 MG/ML VIAL IVP PRN (15:00)
[2021-03-11] MEDS ORDERED: Haloperidol Lactate 5 MG/ML VIAL SLOW IVP PRN (15:00)
[2021-03-11] MEDS ORDERED: chlorproMAZINE HCl 25 MG in Sodium Chloride 0.9% 50 ML IVPB PRN (15:00)
[2021-03-11] MEDS ORDERED: Promethazine HCl 25 MG SUPP PR PRN (15:00)
[2021-03-11] MEDS ORDERED: Milk Of Magnesia 30 ML UDCUP PO PRN (15:00)
[2021-03-11] MEDS ORDERED: Loperamide HCl 2 MG CAP PO PRN (15:00)
[2021-03-11] MEDS ORDERED: Scopolamine 1.5 mg/72 hour Patch TOP PRN ×2 (15:00)
[2021-03-11] MEDS ORDERED: Ondansetron PF 4 MG/2 ML Vial IVP PRN (15:00)
[2021-03-11] MEDS: Lorazepam 2 MG/ML VIAL SLOW IVP PRN (15:42)
[2021-03-12] MEDS: Lorazepam 2 MG/ML VIAL SLOW IVP PRN ×3 (04:20→17:53)
[2021-03-12] MEDS: Morphine 2 MG/ML VIAL SLOW IVP PRN (17:52)
[2021-03-13] MEDS: Lorazepam 2 MG/ML VIAL SLOW IVP PRN (08:50)
[2021-03-13] MEDS: Morphine 2 MG/ML VIAL SLOW IVP PRN (13:33)
[2021-03-14] MEDS: Morphine 2 MG/ML VIAL SLOW IVP PRN (05:22)
[2021-03-14] MEDS: Lorazepam 2 MG/ML VIAL SLOW IVP PRN (05:23)
[2021-03-15] MEDS: Morphine 2 MG/ML VIAL SLOW IVP PRN ×4 (02:22→16:03)
[2021-03-15] MEDS: Lorazepam 2 MG/ML VIAL SLOW IVP PRN ×5 (02:29→21:23)
[2021-03-15 09:14] VITALS: TEMP 97.7
[2021-03-15] MEDS: Morphine 4 MG/ML VIAL SLOW IVP PRN (21:23)
[2021-03-16] MEDS: Morphine 2 MG/ML VIAL SLOW IVP PRN ×4 (01:14→11:07)
[2021-03-16] MEDS: Lorazepam 2 MG/ML VIAL SLOW IVP PRN ×4 (05:46→23:11)
[2021-03-16] MEDS: Morphine 4 MG/ML VIAL SLOW IVP PRN ×2 (13:54→16:02)
[2021-03-16] MEDS: Morphine 2 MG/ML VIAL SLOW IVP SCH ×4 (17:07→23:10)
[2021-03-17] MEDS: Morphine 2 MG/ML VIAL SLOW IVP SCH ×5 (01:02→09:44)
[2021-03-17] MEDS: Lorazepam 2 MG/ML VIAL SLOW IVP PRN ×3 (05:11→10:38)
[2021-03-17 08:36] VITALS: BP 107/68
[2021-03-17] MEDS: Morphine 4 MG/ML VIAL SLOW IVP PRN ×2 (09:41→10:38)
== END 2021-03-17 11:22 | disposition expired | DRG 177 ==
LOC: T4-A 13:45
PROVIDERS: ADMIT Family Medicine; ATTEND Family Medicine
PROC: 3E0336Z Introduction of Nutritional Substance into Peripheral Vein, Percutaneous Approach (ICD-10-PCS; principal; 2021-03-11)
PROC: 8E0ZXY6 Isolation (ICD-10-PCS; 2021-03-11)
PROC: 5A09557 Assistance with Respiratory Ventilation, Greater than 96 Consecutive Hours, Continuous Positive Airway Pressure (ICD-10-PCS; 2021-03-11)
DX: U07.1 COVID-19 (principal); J12.82 Pneumonia due to coronavirus disease 2019; Z51.5 Encounter for palliative care; Z66 Do not resuscitate; J96.01 Acute respiratory failure with hypoxia; N18.6 End stage renal disease; I12.0 Hypertensive chronic kidney disease with stage 5 chronic kidney disease or end stage renal disease; E11.22 Type 2 diabetes mellitus with diabetic chronic kidney disease; E78.5 Hyperlipidemia, unspecified; E78.00 Pure hypercholesterolemia, unspecified; M19.90 Unspecified osteoarthritis, unspecified site; Z99.2 Dependence on renal dialysis; Z79.899 Other long term (current) drug therapy; Z87.891 Personal history of nicotine dependence
CPT/HCPCS: 94660; J2060; J2270